=== PATIENT | female | born 1935 | race Caucasian/White ===

== ENCOUNTER 2020-05-16 15:11 | Outpatient (NON) | payer MEDICARE, SELFPAY ==
[2020-05-16 15:34] LABS: Add Urine Microscopic? YES; Appearance Urine Cloudy (Clear); Bilirubin Urine Negative (Negative); Blood Urine Negative (Negative); Color Urine Yellow (Yellow); Glucose Urine UA Negative (Negative); Ketones Urine Trace (Negative); Leukocyte Esterase Ur Negative LEU/UL (Negative); Nitrate Urine Positive (Negative); Protein Urine Negative (Negative); Specific Grav Ur 1.025 (1.010-1.020); Urobilinogen Urine 0.2 mg/dL (0.2-1.0); pH Urine 5.5 (5.0-8.0)
[2020-05-16 15:42] LABS: Bacteria Urine 4+ /hpf; RBC Urine 0-2 /hpf (0-2); Squamous Epithelial Cell Urine Few /hpf (Few)
== END 2020-05-16 15:12 ==
LOC: CHSLAB 15:13
PROVIDERS: Visit Provider Family Medicine
DX: R35.0 Frequency of micturition (principal)
CPT/HCPCS: 81001; 87077; 87086; 87088; 87186

== ENCOUNTER 2020-08-11 10:33 | Outpatient (NON) | payer MEDICARE, SELFPAY ==
[2020-08-11 10:52] LABS: Hematocrit 37.7 % (35.0-42.0); Hemoglobin 11.9 g/dL (11.7-13.8); Mean Corpuscular HGB Conc 31.6 g/dL (32.0-36.0); Mean Corpuscular Hemoglobin 30.4 pg (27.0-31.0); Mean Corpuscular Volume 96.2 fL (78.0-102.0); Mean Platelet Volume 10.3 fl (9.2-11.8); Platelet Count Result 142 K/mm3 (150-420); Red Blood Count 3.92 M/mm3 (4.20-5.40); White Blood Count 5.2 K/mm3 (4.8-10.8)
[2020-08-11 11:21] LABS: Alanine Aminotransferase 17 U/L (14-59); Albumin Level 3.5 g/dL (3.4-5.0); Alkaline Phosphatase 113 U/L (46-116); Anion Gap 10 mmol/L (8-16); Aspartate Amino Transferase 19 U/L (15-37); Bilirubin Direct 0.2 mg/dL (0-0.2); Bilirubin,Total 0.5 mg/dL (0.00-1.00); Blood Urea Nitrogen 15 mg/dL (7-18); Calcium 8.8 mg/dL (8.5-10.1); Carbon Dioxide 30 mmol/L (21-32); Chloride 100 mmol/L (98-108); Estimated Glomerular Filt Rate 60; Glucose 104 mg/dL (70-99); Osmolality Calculated 290 mOsm/kg (285-295); Sodium 140 mmol/L (136-145); Total Protein 6.5 g/dL (6.4-8.2)
== END 2020-08-11 10:34 ==
PROVIDERS: PCP Family Medicine
DX: R60.9 Edema, unspecified (principal); R93.3 Abnormal findings on diagnostic imaging of other parts of digestive tract
CPT/HCPCS: 36415; 80053; 82248; 85027

== ENCOUNTER 2020-09-30 08:37 | Outpatient (CLI) | payer MEDICARE, SELFPAY ==
[2020-09-30 23:32] LABS: SARS-CoV-2 RNA PCR Negative
== END 2020-09-30 08:38 | disposition home or self-care (01) ==
LOC: CHSLAB 08:40
PROVIDERS: PCP Family Medicine; Visit Provider Family Medicine
DX: Z01.812 Encounter for preprocedural laboratory examination (principal); Z20.822 Contact with and (suspected) exposure to COVID-19
CPT/HCPCS: C9803; U0003; U0005

== ENCOUNTER 2020-10-10 15:24 | Outpatient (CLI) | payer MEDICARE, SELFPAY ==
--- NOTE | ~2020-10-10 | XR_ITS ---
XR abdomen/kub 1V 10/10/2020 16:10 Indication: Choledocholithiasis. Recent ERCP. Procedure: KUB Comparison: No prior studies for comparison. Findings: Bowel pattern is nonobstructive. Moderate colonic fecal loading. There are 2 stents in the right mid abdomen, likely biliary stents. There are surgical clips in the left upper abdomen. There i s surgical fusion changes at L4-5. No abnormal calcifications are identified. Impression: 1: Nonobstructive bowel gas pattern. Reviewed, dictated and finalized at location A. ENGINEERING MANAGER Impression: 1: Nonobstructive bowel gas pattern.
[2020-10-10 15:43] LABS: Basophils Absolute Auto 0.04 K/mm3 (0.00-0.10); Basophils Percent Auto 0.4 % (0.0-1.0); Eosinophils Percent Auto 5.4 % (1.0-6.0); Hematocrit 39.3 % (35.0-42.0); Hemoglobin 12.7 g/dL (11.7-13.8); Immature Granulocyte Absolute 0.04 K/mm3 (0.00-0.00); Immature Granulocyte Percent A 0.4 % (0.0-0.0); Lymphocytes Absolute Auto 1.48 K/mm3 (1.10-4.50); Lymphocytes Percent Auto 15.9 % (18.0-42.0); Mean Corpuscular HGB Conc 32.3 g/dL (32.0-36.0); Mean Corpuscular Hemoglobin 30.7 pg (27.0-31.0); Mean Corpuscular Volume 94.9 fL (78.0-102.0); Monocytes Absolute Auto 0.86 K/mm3 (0.10-0.90); Monocytes Percent Auto 9.2 % (2.0-11.0); Neutrophils Absolute Auto 6.4 K/mm3 (1.7-7.2); Neutrophils Percent Auto 68.7 % (50.0-70.0); Platelet Count Result 278 K/mm3 (150-420); Red Blood Count 4.14 M/mm3 (4.20-5.40); Red Cell Distribution Width 13.6 % (11.6-14.4); White Blood Count 9.3 K/mm3 (4.8-10.8)
[2020-10-10 16:14] LABS: Alanine Aminotransferase 21 U/L (14-59); Albumin Level 3.4 g/dL (3.4-5.0); Alkaline Phosphatase 124 U/L (46-116); Anion Gap 11 mmol/L (8-16); Aspartate Amino Transferase 22 U/L (15-37); Bilirubin Direct 0.2 mg/dL (0-0.2); Bilirubin,Total 0.6 mg/dL (0.00-1.00); Blood Urea Nitrogen 11 mg/dL (7-18); Calcium 8.7 mg/dL (8.5-10.1); Carbon Dioxide 29 mmol/L (21-32); Chloride 98 mmol/L (98-108); Estimated Glomerular Filt Rate 60; Glucose 131 mg/dL (70-99); Lipase 46 U/L (73-393); Osmolality Calculated 287 mOsm/kg (285-295); Potassium 3.2 mmol/L (3.5-5.1); Sodium 138 mmol/L (136-145); Total Protein 7.1 g/dL (6.4-8.2)
== END 2020-10-10 15:25 | disposition home or self-care (01) ==
PROVIDERS: PCP Family Medicine
DX: K80.50 Calculus of bile duct without cholangitis or cholecystitis without obstruction (principal)
CPT/HCPCS: 36415; 74018; 80048; 80076; 83690; 85025

== ENCOUNTER 2021-02-24 11:05 | Outpatient (NON) | payer MEDICARE, SELFPAY ==
[2021-02-24 11:22] LABS: Basophils Absolute Auto 0.03 K/mm3 (0.00-0.10); Basophils Percent Auto 0.3 % (0.0-1.0); Eosinophils Absolute Auto 0.13 K/mm3 (0.02-0.50); Eosinophils Percent Auto 1.5 % (1.0-6.0); Hematocrit 39.8 % (35.0-42.0); Hemoglobin 12.9 g/dL (11.7-13.8); Immature Granulocyte Absolute 0.07 K/mm3 (0.00-0.00); Immature Granulocyte Percent A 0.8 % (0.0-0.0); Lymphocytes Absolute Auto 1.44 K/mm3 (1.10-4.50); Lymphocytes Percent Auto 16.4 % (18.0-42.0); Mean Corpuscular HGB Conc 32.4 g/dL (32.0-36.0); Mean Corpuscular Hemoglobin 30.4 pg (27.0-31.0); Mean Corpuscular Volume 93.6 fL (78.0-102.0); Monocytes Absolute Auto 0.61 K/mm3 (0.10-0.90); Neutrophils Absolute Auto 6.5 K/mm3 (1.7-7.2); Platelet Count Result 269 K/mm3 (150-420); Red Blood Count 4.25 M/mm3 (4.20-5.40); Red Cell Distribution Width 14.2 % (11.6-14.4); White Blood Count 8.8 K/mm3 (4.8-10.8)
== END 2021-02-24 11:06 | disposition home or self-care (01) ==
LOC: CHSLAB 11:11
DX: I25.10 Atherosclerotic heart disease of native coronary artery without angina pectoris (principal); E78.5 Hyperlipidemia, unspecified; I10 Essential (primary) hypertension; I35.0 Nonrheumatic aortic (valve) stenosis; I48.91 Unspecified atrial fibrillation
CPT/HCPCS: 36415; 85025

== ENCOUNTER 2021-03-02 14:14 | Outpatient (CLI) | payer MEDICARE, SELFPAY ==
--- NOTE | ~2021-03-02 | XR_ITS ---
XR chest 2V DATE: 03/02/2021 14:50 INDICATION: Shortness of breath TECHNIQUE: AP and lateral views COMPARISON: 05/27/2014 PA and lateral chest FINDINGS: Status post sternotomy and coronary bypass graft surgery. Cardiomegaly. Aortic calcificatio n and tortuosity. There is extensive calcification of the abdominal aorta as well, without evidence o f abdominal aortic aneurysm. Moderately large hiatal hernia. Prominent diffuse osteopenia and thoracolumbar scoliosis. No pulmonary consolidation, pleural effusion or pulmonary vascular congestion or pneumothorax is dete cted. IMPRESSION: Status post sternotomy/CABG Cardiomegaly Extensive thoracic and abdominal aortic calcification Moderately large hiatal hernia Diffuse osteopenia Reviewed, dictated and finalized at location B.
[2021-03-02 14:31] LABS: Basophils Absolute Auto 0.04 K/mm3 (0.00-0.10); Basophils Percent Auto 0.5 % (0.0-1.0); Eosinophils Percent Auto 1.3 % (1.0-6.0); Hematocrit 38.1 % (35.0-42.0); Hemoglobin 12.2 g/dL (11.7-13.8); Immature Granulocyte Absolute 0.04 K/mm3 (0.00-0.00); Immature Granulocyte Percent A 0.5 % (0.0-0.0); Lymphocytes Absolute Auto 1.23 K/mm3 (1.10-4.50); Lymphocytes Percent Auto 15.7 % (18.0-42.0); Mean Corpuscular Hemoglobin 30.9 pg (27.0-31.0); Mean Corpuscular Volume 96.5 fL (78.0-102.0); Mean Platelet Volume 8.6 fl (9.2-11.8); Monocytes Absolute Auto 0.57 K/mm3 (0.10-0.90); Monocytes Percent Auto 7.3 % (2.0-11.0); Neutrophils Absolute Auto 5.9 K/mm3 (1.7-7.2); Neutrophils Percent Auto 74.7 % (50.0-70.0); Platelet Count Result 243 K/mm3 (150-420); Red Blood Count 3.95 M/mm3 (4.20-5.40); Red Cell Distribution Width 14.4 % (11.6-14.4); White Blood Count 7.8 K/mm3 (4.8-10.8)
[2021-03-02 14:54] LABS: Alanine Aminotransferase 23 U/L (14-59); Albumin Level 3.4 g/dL (3.4-5.0); Alkaline Phosphatase 95 U/L (46-116); Anion Gap 12 mmol/L (8-16); Aspartate Amino Transferase 15 U/L (15-37); Bilirubin,Total 0.6 mg/dL (0.00-1.00); Blood Urea Nitrogen 11 mg/dL (7-18); Calcium 8.8 mg/dL (8.5-10.1); Carbon Dioxide 25 mmol/L (21-32); Chloride 103 mmol/L (98-108); Estimated Glomerular Filt Rate > 60; Glucose 127 mg/dL (70-99); NT Pro B Type Natriuretic Pept 1068 pg/mL (0-450); Osmolality Calculated 291 mOsm/kg (285-295); Sodium 140 mmol/L (136-145); Total Protein 6.6 g/dL (6.4-8.2); Troponin I < 4.0 ng/L (0.00-60.4)
== END 2021-03-02 14:15 | disposition home or self-care (01) ==
LOC: CHSLAB 14:18
PROVIDERS: PCP Family Medicine; Visit Provider Family Medicine
DX: R06.02 Shortness of breath (principal)
CPT/HCPCS: 36415; 71046; 80053; 83880; 84484; 85025

== ENCOUNTER 2021-03-19 15:44 | Outpatient (NON) | payer MEDICARE, SELFPAY ==
[2021-03-19 15:57] LABS: Basophils Absolute Auto 0.03 K/mm3 (0.00-0.10); Basophils Percent Auto 0.4 % (0.0-1.0); Eosinophils Absolute Auto 0.14 K/mm3 (0.02-0.50); Eosinophils Percent Auto 1.8 % (1.0-6.0); Hematocrit 38.2 % (35.0-42.0); Hemoglobin 12.3 g/dL (11.7-13.8); Immature Granulocyte Absolute 0.05 K/mm3 (0.00-0.00); Immature Granulocyte Percent A 0.7 % (0.0-0.0); Lymphocytes Absolute Auto 1.18 K/mm3 (1.10-4.50); Lymphocytes Percent Auto 15.4 % (18.0-42.0); Mean Corpuscular HGB Conc 32.2 g/dL (32.0-36.0); Mean Corpuscular Hemoglobin 30.6 pg (27.0-31.0); Mean Platelet Volume 9.4 fl (9.2-11.8); Monocytes Absolute Auto 0.54 K/mm3 (0.10-0.90); Neutrophils Absolute Auto 5.7 K/mm3 (1.7-7.2); Neutrophils Percent Auto 74.7 % (50.0-70.0); Platelet Count Result 283 K/mm3 (150-420); Red Blood Count 4.02 M/mm3 (4.20-5.40); Red Cell Distribution Width 14.5 % (11.6-14.4); White Blood Count 7.7 K/mm3 (4.8-10.8)
[2021-03-19 16:13] LABS: Alanine Aminotransferase 27 U/L (14-59); Albumin Level 3.5 g/dL (3.4-5.0); Alkaline Phosphatase 113 U/L (46-116); Anion Gap 14 mmol/L (8-16); Aspartate Amino Transferase 18 U/L (15-37); Bilirubin,Total 0.5 mg/dL (0.00-1.00); Blood Urea Nitrogen 11 mg/dL (7-18); Calcium 8.7 mg/dL (8.5-10.1); Carbon Dioxide 25 mmol/L (21-32); Chloride 100 mmol/L (98-108); Estimated Glomerular Filt Rate > 60; Glucose 189 mg/dL (70-99); NT Pro B Type Natriuretic Pept 1115 pg/mL (0-450); Osmolality Calculated 292 mOsm/kg (285-295); Potassium 4.2 mmol/L (3.5-5.1); Sodium 139 mmol/L (136-145); Total Protein 6.4 g/dL (6.4-8.2)
[2021-03-19 16:15] LABS: Troponin I < 4.0 ng/L (0.00-60.4)
== END 2021-03-19 15:45 | disposition home or self-care (01) ==
LOC: CHSLAB 15:46
PROVIDERS: Visit Provider Family Medicine
DX: R06.02 Shortness of breath (principal)
CPT/HCPCS: 36415; 80053; 83880; 84484; 85025

== ENCOUNTER 2021-08-24 16:23 | Outpatient (NON) | payer MEDICARE, SELFPAY ==
[2021-08-24 16:40] LABS: Basophils Absolute Auto 0.03 K/mm3 (0.00-0.10); Basophils Percent Auto 0.6 % (0.0-1.0); Eosinophils Absolute Auto 0.22 K/mm3 (0.02-0.50); Eosinophils Percent Auto 4.1 % (1.0-6.0); Hematocrit 38.4 % (35.0-42.0); Hemoglobin 12.4 g/dL (11.7-13.8); Immature Granulocyte Absolute 0.04 K/mm3 (0.00-0.00); Immature Granulocyte Percent A 0.7 % (0.0-0.0); Lymphocytes Absolute Auto 1.56 K/mm3 (1.10-4.50); Lymphocytes Percent Auto 28.7 % (18.0-42.0); Mean Corpuscular HGB Conc 32.3 g/dL (32.0-36.0); Mean Corpuscular Hemoglobin 30.4 pg (27.0-31.0); Mean Corpuscular Volume 94.1 fL (78.0-102.0); Mean Platelet Volume 9.7 fl (9.2-11.8); Monocytes Absolute Auto 0.62 K/mm3 (0.10-0.90); Monocytes Percent Auto 11.4 % (2.0-11.0); Neutrophils Percent Auto 54.5 % (50.0-70.0); Platelet Count Result 266 K/mm3 (150-420); Red Blood Count 4.08 M/mm3 (4.20-5.40); Red Cell Distribution Width 15.9 % (11.6-14.4); White Blood Count 5.4 K/mm3 (4.8-10.8)
[2021-08-24 17:03] LABS: Alanine Aminotransferase 21 U/L (14-59); Albumin Level 3.6 g/dL (3.4-5.0); Alkaline Phosphatase 100 U/L (46-116); Anion Gap 12 mmol/L (8-16); Aspartate Amino Transferase 23 U/L (15-37); Bilirubin,Total 0.5 mg/dL (0.00-1.00); Blood Urea Nitrogen 13 mg/dL (7-18); Calcium 9.2 mg/dL (8.5-10.1); Carbon Dioxide 25 mmol/L (21-32); Chloride 101 mmol/L (98-108); Estimated Glomerular Filt Rate > 60; Glucose 121 mg/dL (70-99); NT Pro B Type Natriuretic Pept 1226 pg/mL (0-450); Osmolality Calculated 287 mOsm/kg (285-295); Potassium 4.2 mmol/L (3.5-5.1); Sodium 138 mmol/L (136-145); Total Protein 6.6 g/dL (6.4-8.2)
== END 2021-08-24 16:24 | disposition home or self-care (01) ==
LOC: CHSLAB 16:24
PROVIDERS: Visit Provider Family Medicine
DX: I89.0 Lymphedema, not elsewhere classified (principal); R06.02 Shortness of breath
CPT/HCPCS: 36415; 80053; 83880; 85025

== ENCOUNTER 2021-10-14 19:40 | Emergency (ER) | payer MEDICARE, SELFPAY ==
--- NOTE | ~2021-10-14 | XR_ITS ---
XR chest 1V DATE: 10/14/2021 20:20 INDICATION: Shortness of breath, left-sided weakness, numbness. TECHNIQUE: AP chest COMPARISON: 03/02/2021 AP and lateral chest FINDINGS: Status post sternotomy and coronary bypass graft surgery. Cardiomegaly. Aortic calcification. Mild atelectasis and/or scarring in the lower lungs; otherwise no pulmonary infiltrate or consolidati on, pleural effusion, pulmonary vascular congestion or pneumothorax. Prominent osteoarthritic change at the left glenohumeral joint. Diffuse osteopenia. Dextroscoliosis o f the thoracic spine. IMPRESSION: Status post CABG Cardiac megaly Aortic atherosclerosis Mild discoid atelectasis or scarring, lower lungs; otherwise no active pulmonary disease Reviewed, dictated and finalized at location A. IMPRESSION: Status post CABG Cardiac megaly Aortic atherosclerosis Mild discoid atelectasis or scarring, lower lungs; otherwise no active pulmonar y disease
--- NOTE | ~2021-10-14 | CT_ITS ---
EXAMINATION: CT brain wo con DATE: 10/14/2021 20:13 INDICATION: Left sided paresis. History of left cerebral vascular accident with left-sided deficits TECHNIQUE: Computed tomography (CT) of the head was performed without intravenous contrast. The mA wa s adjusted according to patient size. Iterative reconstruction technique was employed. Exam dose: 60 5.33 mGy-cm total exam DLP. COMPARISON: None FINDINGS: There is cerebral and cerebellar atrophy. Common and bilateral carotid siphon internal carotid artery calcifications as well as vertebral and b asilar artery calcifications are noted. Is nonspecific diminished attenuation of the cerebral white m atter, likely due to chronic small vessel ischemic changes. Chronic bilateral basal ganglia lacunar infarcts, right greater than left. No recent cerebrovascular accident is evident. CT is not sensitive for detection of hyperacute nonhem orrhagic infarcts. MR with diffusion imaging would be more appropriate for such scenario. No intracranial mass lesion, hemorrhage, midline shift or mass effect effect. No subdural or epidural hematoma. The orbital contents are unremarkable. There is complete opacification of the right maxillary sinus. There is mild focal posterior medial ri ght ethmoid air cell soft tissue thickening. The paranasal sinuses are otherwise unremarkable. Normal development and aeration of the mastoid air cells. No skull fracture or bone destruction. IMPRESSION: Cerebral atherosclerosis and chronic small vessel ischemic changes of cerebral white mat ter Chronic bilateral basal ganglia lacunar infarcts, more prominent on the right No acute intracranial finding Cerebral and cerebellar atrophy Reviewed, dictated and finalized at Location A. Reviewed, dictated and finalized at location A. IMPRESSION: Cerebral atherosclerosis and chronic small vessel ischemic changes of cerebral white matter Chronic bilateral basal ganglia lacunar infarcts, more prominent on the right No acute intracranial finding Cerebral and cerebellar atrophy
[2021-10-14 19:51] VITALS: BP 108/70; PULSE 92; RESP 18; TEMP 37; O2SAT 96
--- NOTE | 2021-10-14 19:57 | ECG_ITS ---
Measurements Intervals [place] Rate: 82 P: [place]: 0 QRS: -55 QRSD: 145 T: -12 QT: 372 QTc: 435 Interpretive Statements ATRIAL FIBRILLATION INDETERMINATE AXIS RIGHT BUNDLE BRANCH BLOCK [120+ ms QRS DURATION, UPRIGHT V1, 40+ ms S IN I/aVL/V4/V5/V6] LEFT ANTERIOR FASCICULAR BLOCK [QRS AXIS <= -45, QR IN I, RS IN II] NO PREVIOUS ECG AVAILABLE FOR COMPARISON Electronically Signed On 10-15-2021 13:55:26 CDT by eXnia Garcia M.D.
[2021-10-14 20:56] LABS: Basophils Percent Auto 0.4 % (0.2-1.2); Eosinophils Absolute Auto 0.2 K/mm3 (0-0.3); Eosinophils Percent Auto 1.6 % (0-4.4); Hematocrit 39.5 % (37.0-47.0); Hemoglobin 13.1 g/dL (12.0-15.0); Immature Granulocyte Absolute 0.04 K/mm3 (0.00-0.031); Immature Granulocyte Percent A 0.4 % (0-0.5); Lymphocytes Absolute Auto 1.72 K/mm3 (0.9-3.2); Lymphocytes Percent Auto 16.5 % (18.3-44.2); Mean Corpuscular HGB Conc 33.2 g/dl (32-36); Mean Corpuscular Hemoglobin 30.6 pg (26-34); Mean Corpuscular Volume 92.3 fl (80-100); Mean Platelet Volume 8.8 fl (7.4-10.4); Monocytes Absolute Auto 0.9 K/mm3 (0.1-0.6); Monocytes Percent Auto 8.5 % (2.6-8.5); Neutrophils Absolute Auto 7.6 K/mm3 (1.3-6.7); Neutrophils Percent Auto 72.6 % (45.5-73.1); Platelet Count Result 274 k/mm3 (150-375); Red Blood Count 4.28 M/mm3 (4.2-5.4); Red Cell Distribution Width 16.4 % (11.5-14.5); White Blood Count 10.4 K/mm3 (4.5-10.0)
[2021-10-14 21:04] LABS: INR 1.4
[2021-10-14 21:05] LABS: Partial Thromboplastin Time 39.8 SECONDS (22.3-36.8)
[2021-10-14 21:07] LABS: Alanine Aminotransferase 31 U/L (4-35); Albumin Level 4.2 g/dL (3.5-5.1); Alkaline Phosphatase 98 U/L (38-126); Anion Gap 7 mmol/L (8-16); Aspartate Amino Transferase 34 U/L (14-36); Bilirubin,Total 0.5 mg/dL (0.2-1.3); Blood Urea Nitrogen 24 mg/dL (7-17); Carbon Dioxide 30 mmol/L (22-30); Chloride 97 mmol/L (98-107); Estimated CRCL calculation 37 ml/min; Estimated Glomerular Filt Rate > 60; Glucose 112 mg/dL (65-110); Potassium 3.4 mmol/L (3.4-5.0); Sodium 134 mmol/L (137-145)
[2021-10-14 21:22] LABS: Troponin I < 0.012 ng/mL (0.000-0.034)
[2021-10-14 22:16] VITALS: BP 124/74; PULSE 90; PULSE 94; RESP 20
[2021-10-14 22:17] VITALS: PULSE 88; RESP 17
[2021-10-14 22:30] VITALS: PULSE 85; RESP 16
[2021-10-14 22:31] VITALS: BP 120/77; PULSE 81; RESP 19
[2021-10-14 22:45] VITALS: PULSE 105; RESP 19
[2021-10-14 23:23] LABS: Add Urine Microscopic? NO; Appearance Urine Clear (Clear); Bilirubin Urine Negative (Negative); Blood Urine Negative (Negative); Color Urine Yellow (Yellow); Glucose Urine UA Negative (Negative); Ketones Urine Negative (Negative); Leukocyte Esterase Ur Negative LEU/UL (Negative); Nitrate Urine Negative (Negative); Protein Urine Negative (Negative); Specific Grav Ur 1.011 (1.001-1.035); Urobilinogen Urine Negative mg/dL (<2.0)
--- NOTE | 2021-10-14 23:41 | PC.NURSE ---
Call from Jazzy VLILARREAL at [facility] checking on the status of the pt. no known plan at this time, but will call back @ [phone] when dipo plan has been made by ERP
--- NOTE | 2021-10-14 23:46 | ED.NEUROSD ---
HPI - Neuro Symptoms/Deficit General Chief Complaint: Neuro Symptoms/Deficit Stated Complaint: left sided weakness x 1 week, hx of CVA Time Seen by Provider: 10/14/21 22:09 Source: patient History of Present Illness HPI Narrative: Patient presents with a dizzy spell and left-sided weakness for 1 week. Sweats she has had prior strokes and is chronically weak on her left side and has some chronic left-sided weakness. Approximately 1 week ago she had an episode of feeling off balance she also has a history of vertigo that episode was more intense. Since then she reports a fog in her head and her numbness feels different on the left side so she wanted to be evaluated. Denies any abdominal pain, nausea, vomiting, diarrhea, fevers, cough, congestion Review of Systems Review of Systems: CONSTITUTIONAL: Denies fever, chills, or sweats. EYES: Denies visual changes, redness, or discharge. ENT: Denies rhinorrhea, congestion, sore throat, or otalgia. CARDIOVASCULAR: Denies chest pain, palpitations, or edema. RESPIRATORY: Denies cough or dyspnea. GASTROINTESTINAL: Denies abdominal pain, nausea, vomiting, or diarrhea. GENITOURINARY: Denies dysuria or hematuria. SKIN: Denies rash or itching. MUSCULOSKELETAL: Denies back pain, joint pain, or myalgia. NEUROLOGIC: Reports numbness weakness and dizziness PSYCHIATRIC: Denies anxiety or depression. All systems reviewed & are unremarkable except as noted in HPI and below Exam Narrative: GENERAL: Well-appearing, well-nourished, and in no acute distress. HEAD: Normocephalic, atraumatic. EYES: PERRLA and EOMI. ENT: Nares clear, no rhinorrhea or epistaxis. Mucous membranes moist. NECK: Supple. No masses. No JVD CHEST: Clear to auscultation. No respiratory distress. No wheezes rales or rhonchi HEART: Regular rate and rhythm. No murmur heard. Normal peripheral pulses. ABDOMEN: Soft, nontender, nondistended, normal active bowel sounds. EXTREMITIES: Normal range of motion. No edema. SKIN: Warm, dry, no rash. NEURO: Cranial nerves II through XII are intact there is 4-5 strength of the left upper extremity extremity with elbow flexion extension patient reports due to pain. Out of 5 strength in the remainder of the extremities sensation intact to light touch in all extremities. Finger-nose is intact without dysmetria no dysdiadochokinesia alert and oriented x3. PSYCH: Normal mood and affect. Course Reevaluation(s) Reevaluation #1: Results thus far reviewed with patient and family. Symptoms may represent exacerbation of chronic vertigo or may represent new acute ischemia however given the duration of symptoms patient is not a candidate for acute intervention. She was offered admission and further evaluation with an MRI of her she is already on maximal medical therapies patient and family were comfortable without additional imaging she feels like she can continue to manage her symptoms at home and would like to follow-up with her primary care physician. Date: 10/14/21 Time: 23:54 Vital Signs Vital signs: Vital Signs Temperature 37.0 C 10/14/21 19:51 Pulse Rate 92 10/14/21 19:51 Respiratory Rate 18 10/14/21 19:51 Blood Pressure 108/70 10/14/21 19:51 Pulse Oximetry 96 10/14/21 19:51 Temperature 37.0 C 10/14/21 19:51 Pulse Rate 105 H 10/14/21 22:45 Respiratory Rate 19 10/14/21 22:45 Blood Pressure 120/77 10/14/21 22:31 Pulse Oximetry 96 10/14/21 19:51 MDM - Neuro Symptoms/Deficit MDM Narrative Medical decision making narrative: H&P as above, vss, pt looks clinically well, exam with mild left upper extremity weakness likely related to pain patient reported that is chronic., labs unremarkable, img unremarkable for acute process, additional labs/img considered, symptomatic relief available as needed, on reevaluation pt continues to looks clinically well. Symptoms may represent 1 week old CVA versus exacerbation of chronic numbness weakness and vertigo, dns intracranial hemorrhage,
== END 2021-10-15 00:45 ==
PROVIDERS: Emergency Provider Emergency Medicine; PCP Family Medicine
DX: R42 Dizziness and giddiness (principal); I48.91 Unspecified atrial fibrillation; I69.954 Hemiplegia and hemiparesis following unspecified cerebrovascular disease affecting left non-dominant side
CPT/HCPCS: 36415; 70450; 71045; 80053; 81003; 84484; 85025; 85610; 85730; 93005; 99284

== ENCOUNTER 2021-11-30 16:00 | Inpatient (IN) | payer MEDICARE, SELFPAY ==
[2021-11-30] VITALS (14 sets, daily range): BP systolic 109–134; BP diastolic 63–86; PULSE 94–101; RESP 16–27; TEMP 37.3–38.5; O2SAT 91–100; BMI 24.3
--- NOTE | ~2021-11-30 | XR_ITS ---
EXAMINATION: XR chest PICC line INDICATION: PICC insertion TECHNIQUE: Portable AP chest at 1049 hours COMPARISON: 11/30/2021 FINDINGS: A right upper extremity PICC has been inserted which courses superiorly into the internal j ugular vein. There is mild atelectasis of the lung bases. Right basilar airspace opacities have impro brian. There is no pleural effusion or pneumothorax. The cardiomediastinal silhouette is stable. IMPRESSION: 1. Right upper extremity PICC coursing superiorly into the internal jugular vein. 2. Bibasilar atelectasis. Reviewed, dictated and finalized at location B. IMPRESSION: 1. Right upper extremity PICC coursing superiorly into the internal jugular vei n. 2. Bibasilar atelectasis.
--- NOTE | ~2021-11-30 | CT_ITS ---
EXAMINATION: CT brain wo con DATE: 11/30/2021 18:12 INDICATION: fall TECHNIQUE: Computed tomography (CT) of the head was performed without intravenous contrast. The mA wa s adjusted according to patient size. Iterative reconstruction technique was employed. The dose-lengt h product was 605.33 mGy-cm. COMPARISON: 10/14/21 FINDINGS: No acute intracranial hemorrhage or extra-axial fluid collection. No hydrocephalus, mass, or herniation. No acute ischemic infarct. Unremarkable dural venous sinus attenuation. No acute osseous abnormality. Mucosal thickening in the ethmoid air cells. Hyperdense material in the right maxillary sinus. Air-fl uid level in left maxillary sinus. Otherwise the aerated spaces are clear. Moderate atrophy. Mild chronic white matter change. Chronic lacunar infarcts. Atherosclerotic intracr anial calcifications. Bilateral lens replacements. IMPRESSION: No acute intracranial process. Other findings may indicate presence of acute on chronic sinusitis in the appropriate clinical context. Reviewed, dictated and finalized at location K.
--- NOTE | ~2021-11-30 | XR_ITS ---
EXAMINATION: XR chest PICC line INDICATION: PICC adjustment TECHNIQUE: Portable AP chest at 1312 hours COMPARISON: 1049 hours FINDINGS: The right upper extremity PICC now ends with its tip in the distal superior vena cava. Card iomegaly is noted. There is no pleural effusion or pneumothorax. There is mild atelectasis of the tanvir g bases. Median sternotomy wires and mediastinal surgical clips are seen, likely from prior coronary artery bypass grafting. IMPRESSION: 1. Right upper extremity PICC now ending with its tip at the distal superior vena cava. Reviewed, dictated and finalized at location B. IMPRESSION: 1. Right upper extremity PICC now ending with its tip at the distal superior ve na cava.
--- NOTE | ~2021-11-30 | XR_ITS ---
EXAMINATION: XR chest 1V portable INDICATION: Fever and weakness TECHNIQUE: Portable AP chest at 1713 hours COMPARISON: 10/14/2021 FINDINGS: Airspace opacities have developed in the right lung base. Left basilar airspace opacities a re stable. There is no definite pleural effusion or pneumothorax. Cardiomegaly is noted. Median gordon otomy wires and mediastinal surgical clips are seen, likely from prior coronary artery bypass graftin g. There is advanced osteoarthritis of the left glenohumeral joint. IMPRESSION: 1. New right basilar airspace opacity, consistent with atelectasis versus pneumonia. 2. Cardiomegaly. Reviewed, dictated and finalized at location A. IMPRESSION: 1. New right basilar airspace opacity, consistent with atelectasis versus pneum onia. 2. Cardiomegaly.
--- NOTE | ~2021-11-30 | XR_ITS ---
EXAM: XR hip BI 2V w AP pelvis, XR knee LT min 4V, XR femur LT min 2V HISTORY: FALL YESTERDAY, WEAKNESS X2DAY, PAIN MAINLY IN LT HIP COMPARISON: Abdomen x-ray 10/10/2020. FINDINGS: Osteopenia. Lumbar fusion. Degenerative changes in the bilateral hips and pubic symphysis. Right inguinal/femoral surgical clips. Severe tricompartmental degenerative change in the left knee. Large volume left knee joint effusion. No fracture or dislocation. IMPRESSION: No acute osseous finding in the pelvis, bilateral hips, left femur, or left knee. Reviewed, dictated and finalized at location K. IMPRESSION: No acute osseous finding in the pelvis, bilateral hips, left femur, or left kne e. IMPRESSION: No acute osseous finding in the pelvis, bilateral hips, left femur, or left kne e.
--- NOTE | 2021-11-30 16:54 | ECG_ITS ---
Measurements Intervals [place] Rate: 102 P: [place]: 0 QRS: 7 QRSD: 144 T: -7 QT: 338 QTc: 441 Interpretive Statements ATRIAL FIBRILLATION WITH RAPID VENTRICULAR RESPONSE RIGHT BUNDLE BRANCH BLOCK CANNOT RULE OUT SEPTAL INFARCT, AGE INDETERMINATE MINIMAL Q WAVES- INFERIOR LEADS BASELINE WANDER- V3-V5 ABNORMAL ECG Electronically Signed On 12-01-2021 12:49:24 CDT by Jonny Bingham D.O.
[2021-11-30 17:07] LABS: Basophils Percent Auto 0.2 % (0.2-1.2); Eosinophils Percent Auto 0.3 % (0-4.4); Hemoglobin 13.3 g/dL (12.0-15.0); Immature Granulocyte Absolute 0.05 K/mm3 (0.00-0.031); Immature Granulocyte Percent A 0.4 % (0-0.5); Lymphocytes Absolute Auto 1.02 K/mm3 (0.9-3.2); Lymphocytes Percent Auto 7.5 % (18.3-44.2); Mean Corpuscular HGB Conc 34.1 g/dl (32-36); Mean Corpuscular Volume 87.8 fl (80-100); Mean Platelet Volume 10.2 fl (7.4-10.4); Monocytes Absolute Auto 1.3 K/mm3 (0.1-0.6); Monocytes Percent Auto 9.2 % (2.6-8.5); Neutrophils Absolute Auto 11.3 K/mm3 (1.3-6.7); Neutrophils Percent Auto 82.4 % (45.5-73.1); Platelet Count Result 388 k/mm3 (150-375); Red Blood Count 4.44 M/mm3 (4.2-5.4); Red Cell Distribution Width 13.7 % (11.5-14.5); White Blood Count 13.6 K/mm3 (4.5-10.0)
[2021-11-30 17:16] LABS: Lactic Acid Reflex 2.5 mmol/L (0.7-2.0)
[2021-11-30 18:02] LABS: Appearance Urine Clear (Clear); Bilirubin Urine Negative (Negative); Color Urine Yellow (Yellow); Glucose Urine UA Negative (Negative); Ketones Urine Negative (Negative); Leukocyte Esterase Ur Trace LEU/UL (Negative); Nitrate Urine Positive (Negative); Protein Urine Negative (Negative); Specific Grav Ur 1.015 (1.001-1.035); Urobilinogen Urine 0.2 mg/dL (<2.0)
[2021-11-30 18:06] LABS: Bacteria Urine Trace /hpf; Mucus Urine Rare /lpf; RBC Urine 0-2 /hpf (0-2); Squamous Epithelial Cell Urine Rare /hpf (Few)
[2021-11-30 18:11] LABS: Alanine Aminotransferase 17 U/L (4-35); Alkaline Phosphatase 117 U/L (38-126); Anion Gap 9 mmol/L (8-16); Aspartate Amino Transferase 33 U/L (14-36); Blood Urea Nitrogen 14 mg/dL (7-17); Calcium 8.3 mg/dL (8.4-10.2); Carbon Dioxide 30 mmol/L (22-30); Chloride 94 mmol/L (98-107); Estimated CRCL calculation 66 ml/min; Estimated Glomerular Filt Rate > 60; Glucose 158 mg/dL (65-110); Potassium 3.1 mmol/L (3.4-5.0); Sodium 133 mmol/L (137-145)
[2021-11-30 18:16] LABS: Add Urine Microscopic? YES; Blood Urine Trace (Negative)
--- NOTE | 2021-11-30 18:55 | PC.NURSE ---
Blood cultures being drawn at this time
--- NOTE | 2021-11-30 19:28 | PC.NURSE ---
Report received and care of pt assumed at this time. Pt resting on stretcher.
[2021-11-30 20:05] LABS: Reflex Lactic Acid Yes or No Add Lactic
[2021-11-30] MEDS: CALCIUM CARBONATE (TUMS) 500 MG (200 MG ELEMENTAL) PO (20:30)
[2021-11-30 20:36] LABS: Lactic Acid 1.2 mmol/L (0.7-2.0)
[2021-11-30] MEDS: METOCLOPRAMIDE HCL INJ 10 MG/2 ML VIAL IV PUSH (20:59)
[2021-11-30] MEDS: POTASSIUM CHLORIDE 10 MEQ TABLET 20 MEQ PO (20:59)
--- NOTE | 2021-11-30 22:55 | ADMGEN ---
This patient, Edwina Elaine, was admitted to Medical Room 340-01. Patient/family oriented to hospital policies and general routines including ID bracelet, bed and alarms, visiting hours, pain management, procedures, bathroom and other care routines, personal items, smoking policy, room service/diet, and visiting hours. Information on how to activate the Rapid Response Team has been discussed. Patient/Family are encouraged to report perceived risks to care and to ask questions if they do not understand what they are told or what they should do.
[2021-12-01] VITALS (8 sets, daily range): BP systolic 110–120; BP diastolic 56–68; PULSE 86–101; RESP 16–30; TEMP 36.1–37; O2SAT 93–96
--- NOTE | 2021-12-01 00:31 | ED.WEAKNESS ---
HPI - Weakness General Chief complaint: Weakness Stated complaint: Weakness, Fever Time Seen by Provider: 11/30/21 17:13 Source: patient Mode of arrival: EMS History of Present Illness HPI Narrative: 86-year-old female presents today from long-term with complaints of weakness and dizziness that she noted yesterday. Patient states her legs gave out on her yesterday and she fell. Patient states she has not been up since she fell. Patient with complaints of left knee pain. Patient with productive cough. Patient states she just got off isolation for COVID. Was diagnosed November 17. Patient denies fever, body aches, chills. Related Data Home Medications Medication Instructions Recorded Confirmed Antacid (calcium carbonate) 500 mg PO PRN PRN 11/30/21 11/30/21 Singulair 10 mg PO DAILY 11/30/21 11/30/21 amlodipine 5 mg PO DAILY 11/30/21 11/30/21 apixaban [Eliquis] 5 mg PO BID 11/30/21 11/30/21 atorvastatin 40 mg PO DAILY 11/30/21 11/30/21 cetirizine 10 mg PO DAILY 11/30/21 11/30/21 fluticasone propion-salmeterol 1 inh INHALATION BID 11/30/21 11/30/21 [Advair Diskus] fluticasone propionate 1 spray EACH NARE DAILY 11/30/21 11/30/21 furosemide 80 mg PO BID 11/30/21 11/30/21 lisinopril 5 mg PO DAILY 11/30/21 11/30/21 loperamide 2 mg PO PRN PRN MDD 14 mg 11/30/21 11/30/21 meclizine 25 mg PO QID 11/30/21 11/30/21 metoprolol tartrate 50 mg PO BID 11/30/21 11/30/21 pantoprazole 40 mg PO DAILY 11/30/21 11/30/21 senna-docusate sodium 8.6 - 50 mg PO DAILY PRN 11/30/21 11/30/21 sertraline 50 mg PO DAILY 11/30/21 11/30/21 Allergies Allergy/AdvReac Type Severity Reaction Status Date / Time clonidine Allergy Mild Unknown Verified 11/30/21 23:32 codeine Allergy Unknown Verified 11/30/21 23:32 diphenhydramine Allergy Unknown Verified 11/30/21 23:32 Iodinated Contrast Media Allergy Unknown Verified 11/30/21 23:32 morphine Allergy Unknown Verified 11/30/21 23:32 oxycodone Allergy Unknown Verified 11/30/21 23:32 tramadol Allergy Unknown Verified 11/30/21 23:32 Review of Systems Review of Systems: CONSTITUTIONAL: Weakness. Denies fever, chills, or sweats. EYES: Denies visual changes, redness, or discharge. ENT: Denies rhinorrhea, congestion, sore throat, or otalgia. CARDIOVASCULAR: Denies chest pain, palpitations, or edema. RESPIRATORY: Denies cough or dyspnea. GASTROINTESTINAL: Denies abdominal pain, nausea, vomiting, or diarrhea. GENITOURINARY: Denies dysuria or hematuria. SKIN: Denies rash or itching. MUSCULOSKELETAL: Left knee pain after fall. Denies back pain, joint pain, or myalgia. NEUROLOGIC: Weakness. Denies headache, numbness, dizziness. PSYCHIATRIC: Denies anxiety or depression. [facility] Social History Social History Smoking status: Never smoker Second hand tobacco smoke exposure: No Alcohol intake: never Substance use: never Spiritual care concerns: No (Mormonism) Exam Narrative: GENERAL: Ill-appearing, well-nourished, and in no acute distress. HEAD: Normocephalic, atraumatic. EYES: PERRLA and EOMI. ENT: Nares clear, no rhinorrhea or epistaxis. Mucous membranes moist. Oropharynx without tonsillar hypertrophy exudate or other lesions. Bilateral TMs pearly salmeron nonbulging NECK: Supple. No adenopathy or masses. No carotid bruits or JVD CHEST: Diminished to auscultation. No respiratory distress. No wheezes rales or rhonchi HEART: Regular rate and rhythm. No murmur heard. Normal peripheral pulses. ABDOMEN: Soft, nontender, nondistended, normal active bowel sounds. EXTREMITIES: Limited range of motion to left knee due to pain. Swelling noted to left knee. SKIN: Warm, dry, no rash. NEURO: No focal deficits. Alert and oriented x3. PSYCH: Normal mood and affect. Course Course Emergency Course: Labs and x-ray as noted. Hospitalist notified and case reviewed. Patient to be admitted for pneumonia and further management on inpatient. Vital Signs Vital signs
--- NOTE | 2021-12-01 02:48 | ECG_ITS ---
Measurements Intervals [place] Rate: 100 P: [place]: 0 QRS: 21 QRSD: 138 T: -8 QT: 367 QTc: 474 Interpretive Statements ATRIAL FIBRILLATION WITH RAPID VENTRICULAR RESPONSE RIGHT BUNDLE BRANCH BLOCK BASELINE ARTIFACT- V2, V4 ABNORMAL ECG Electronically Signed On 12-01-2021 10:06:42 CDT by Jonny Bingham D.O.
[2021-12-01] MEDS: ONDANSETRON INJ 4 MG/2 ML VIAL IV PUSH (03:23)
[2021-12-01] MEDS: KCL 40 MEQ/0.9% SOD CHL 1,000 ML 100 ML IV CONT (03:28)
--- NOTE | 2021-12-01 03:40 | PM.IMHP ---
H&P: HPI History of Present Illness Date/Time: 12/01/21 03:40 Chief Complaint: SOB, Malaise, cough Narrative: 86 yo F PMHx of depression, COPD/asthma, HTN. Previous COVID PNA 10/2021. Presents with malaise since Tuesday. Patient states she was feeling dizzy and weak, and Tuesday evening she was so weak to the point that her legs gave out and she fell. She states for the past week she has had a productive cough. She reports she coughed so hard in the ED that she had a vomiting episode. Patient had another vomiting episode with her coughing spell when I evaluated her. She denies fevers/chills, no worsening SOB than baseline, diarrhea, constipation, dysuria, hematuria, blood in stool. In ED, patient's labs remarkable for WBC 13.6, plt 388, sodium 133 and chloride 94, potassium 3.1. Initial lactic 2.5, however on repeat normal. CXR shows RLL consolidation. UA positive for nitrates and leuks. Blood culture and urine culture done. Patient given dose of vanc and cefepime. Review of Systems Review of Systems: All systems reviewed & are unremarkable except as noted in HPI and below PMFSH Social History Social History Smoking status: Never smoker Second hand tobacco smoke exposure: No Alcohol intake: never Substance use: never Spiritual care concerns: No (Hoahaoism) Meds Home Medications and Allergies Home Medications Medication Instructions Recorded Confirmed Type Antacid (calcium carbonate) 500 mg PO PRN PRN 11/30/21 11/30/21 History Singulair 10 mg PO DAILY 11/30/21 11/30/21 History amlodipine 5 mg PO DAILY 11/30/21 11/30/21 History apixaban [Eliquis] 5 mg PO BID 11/30/21 11/30/21 History atorvastatin 40 mg PO DAILY 11/30/21 11/30/21 History cetirizine 10 mg PO DAILY 11/30/21 11/30/21 History fluticasone propion-salmeterol 1 inh INHALATION BID 11/30/21 11/30/21 History [Advair Diskus] fluticasone propionate 1 spray EACH NARE DAILY 11/30/21 11/30/21 History furosemide 80 mg PO BID 11/30/21 11/30/21 History lisinopril 5 mg PO DAILY 11/30/21 11/30/21 History loperamide 2 mg PO PRN PRN MDD 14 mg 11/30/21 11/30/21 History meclizine 25 mg PO QID 11/30/21 11/30/21 History metoprolol tartrate 50 mg PO BID 11/30/21 11/30/21 History pantoprazole 40 mg PO DAILY 11/30/21 11/30/21 History senna-docusate sodium 8.6 - 50 mg PO DAILY PRN 11/30/21 11/30/21 History sertraline 50 mg PO DAILY 11/30/21 11/30/21 History Allergies Allergy/AdvReac Type Severity Reaction Status Date / Time clonidine Allergy Mild Unknown Verified 11/30/21 23:32 codeine Allergy Unknown Verified 11/30/21 23:32 diphenhydramine Allergy Unknown Verified 11/30/21 23:32 Iodinated Contrast Media Allergy Unknown Verified 11/30/21 23:32 morphine Allergy Unknown Verified 11/30/21 23:32 oxycodone Allergy Unknown Verified 11/30/21 23:32 tramadol Allergy Unknown Verified 11/30/21 23:32 Vital Signs Vital Signs - 24 hr 11/30/21 16:24 11/30/21 16:56 11/30/21 16:58 Temperature 101.3 F H Pulse Rate 97 100 101 H Respiratory Rate 16 27 H Blood Pressure 134/77 120/77 Pulse Oximetry 97 96 11/30/21 17:01 11/30/21 17:16 11/30/21 17:31 Temperature Pulse Rate 98 99 94 Respiratory Rate 25 H 25 H 27 H Blood Pressure 125/76 114/78 109/63 Pulse Oximetry 97 98 96 11/30/21 17:33 11/30/21 18:31 11/30/21 19:05 Temperature Pulse Rate 95 101 H 99 Respiratory Rate 18 25 H 20 Blood Pressure 109/63 125/70 132/72 Pulse Oximetry 100 94 91 11/30/21 19:08 11/30/21 20:21 11/30/21 22:47 Temperature Pulse Rate 96 96 Respiratory Rate 16 16 Blood Pressure 126/68 126/86 Pulse Oximetry 98 94 94 11/30/21 23:00 11/30/21 23:23 Temperature 99.1 F Pulse Rate Respiratory Rate Blood Pressure Pulse Oximetry 94 Exam Const: General: no acute distress and uncomfortable (coughing) HENMT: Mouth: Yes moist mucous membranes Eyes: General: appearance normal, both eyes and al
[2021-12-01] MEDS: FLUTICASONE/SALMETEROL 115-21 MCG INHALER 1 PUFF 2 PUFF INHALATION ×2 (08:01→20:20)
[2021-12-01 08:23] LABS: Basophils Percent Auto 0.2 % (0.2-1.2); Hematocrit 35.6 % (37.0-47.0); Immature Granulocyte Absolute 0.05 K/mm3 (0.00-0.031); Immature Granulocyte Percent A 0.4 % (0-0.5); Lymphocytes Absolute Auto 1.07 K/mm3 (0.9-3.2); Lymphocytes Percent Auto 8.5 % (18.3-44.2); Mean Corpuscular HGB Conc 30.9 g/dl (32-36); Mean Corpuscular Volume 93.9 fl (80-100); Mean Platelet Volume 10.7 fl (7.4-10.4); Monocytes Absolute Auto 1.5 K/mm3 (0.1-0.6); Monocytes Percent Auto 11.8 % (2.6-8.5); Neutrophils Absolute Auto 9.9 K/mm3 (1.3-6.7); Neutrophils Percent Auto 79.1 % (45.5-73.1); Platelet Count Result 192 k/mm3 (150-375); Red Blood Count 3.79 M/mm3 (4.2-5.4); Red Cell Distribution Width 14.2 % (11.5-14.5); White Blood Count 12.6 K/mm3 (4.5-10.0)
[2021-12-01 08:40] LABS: Hemoglobin A1C 6.4 % (<5.7)
[2021-12-01 08:43] LABS: Anion Gap 9 mmol/L (8-16); Blood Urea Nitrogen 11 mg/dL (7-17); Carbon Dioxide 26 mmol/L (22-30); Chloride 97 mmol/L (98-107); Estimated CRCL calculation 80 ml/min; Estimated Glomerular Filt Rate > 60; Glucose 143 mg/dL (65-110); Potassium 3.5 mmol/L (3.4-5.0); Sodium 132 mmol/L (137-145)
[2021-12-01] MEDS: APIXABAN 5 MG TABLET PO ×2 (09:28→20:12)
[2021-12-01] MEDS: amLODIPine BESYLATE 5 MG TABLET PO (09:28)
[2021-12-01] MEDS: lisinopriL 5 MG TABLET PO (09:28)
[2021-12-01] MEDS: MONTELUKAST SODIUM 10 MG TABLET PO (09:28)
[2021-12-01] MEDS: PANTOPRAZOLE 40 MG TABLET PO (09:28)
[2021-12-01] MEDS: SERTRALINE HCL 50 MG TABLET PO (09:28)
[2021-12-01] MEDS: LORATADINE 10 MG TABLET PO (09:28)
[2021-12-01] MEDS: METOPROLOL TARTRATE 50 MG TAB PO ×2 (09:28→20:12)
[2021-12-01] MEDS: ATORVASTATIN 40 MG TABLET PO (09:28)
[2021-12-01] MEDS: FLUTICASONE PROPIONATE 0.05% NA SPR 16 GM BTL (*BKC) 1 SPRAY NASAL ×2 (09:29→20:13)
--- NOTE | 2021-12-01 12:20 | PM.IMPN ---
Progress Note: A&P Assessment and Plan (1) Pneumonia: Qualifiers: Laterality: right Lung location: lower lobe of lung Pneumonia type: due to unspecified organism Qualified Code(s): J18.9 - Pneumonia, unspecified organism Code(s): J18.9 - Pneumonia, unspecified organism Status: Acute Assessment and Plan: CXR shows right lower lobe consolidation and cardiomegaly. Patient recently treated for covid pneumonia. Do not suspect COPD exacerbation, will hold off on steroids at this time. Given from SNF, Providing HCAP coverage. Patient advises she is not on home O2 and is saturating well on room air today. Sputum cx and blood cx pending. 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 Repeat EKG today shows patient is still in AFIB, normal rate. Spoke with the patient who advised she has a personnel monitor with [employer], Dr. Quinteros, and states Dr. Quinteros started her on Eliquis. She denies history of AFIB, but I do believe that she was started on metoprolol and Eliquis for this reason. She is currently rate controlled, anticoagulated, and asymptomatic. Continue Eliquis Request records from [facility]. Continue metoprolol (3) COPD (chronic obstructive pulmonary disease): Code(s): J44.9 - Chronic obstructive pulmonary disease, unspecified Status: Acute Assessment and Plan: Continue home inhaler therapy and PRN albuterol nebs. Likely not a COPD exacerbation at this time, but will continue to monitor. (4) Urinary tract infection: Qualifiers: Hematuria presence: without hematuria Urinary tract infection type: site unspecified Qualified Code(s): N39.0 - Urinary tract infection, site not specified Code(s): N39.0 - Urinary tract infection, site not specified Status: Acute Assessment and Plan: Abnormal UA upon admission. Urine cx pending. Blood cultures normal Continue cefepime/vanc empirically (5) Hyperglycemia: Code(s): R73.9 - Hyperglycemia, unspecified Status: Acute Assessment and Plan: A1c 6.4. Glucose 143. Low dose SSI with accuchecks. (6) Hypertension: Code(s): I10 - Essential (primary) hypertension Status: Acute Assessment and Plan: Continue lisinopril, amlodipine, lasix within BP parameters. Continue to monitor. (7) CAD (coronary artery disease): Code(s): I25.10 - Atherosclerotic heart disease of [place] coronary artery without angina pectoris Status: Acute Assessment and Plan: Patient reports past medical history of CABG. Records have been request from her personnel monitor. Patient is chest pain-free Start on Aspirin today. Continue to monitor. (8) Anxiety: Code(s): F41.9 - Anxiety disorder, unspecified Status: Acute Assessment and Plan: Continue zoloft and lorazepam. (9) GERD (gastroesophageal reflux disease): Code(s): K21.9 - Gastro-esophageal reflux disease without esophagitis Status: Acute Assessment and Plan: Continue protonix p.r.n. Tums (10) Electrolyte abnormality: Code(s): E87.8 - Other disorders of electrolyte and fluid balance, not elsewhere classified Status: Acute Assessment and Plan: Potassium 3.5 today after receiving 40 mEq yesterday. Could be from home home lasix. Will continue to monitor, D/C IV potassium at this time. If continues to drop, will start oral potassium. Sodium 132 today. Likely from poor p.o. intake. patient is currently asymptomatic. Continue to encourage oral intake. Consider salt tablets if sodium continues to drop on IV fluids. (11) CHF (congestive heart failure): Code(s):
--- NOTE | 2021-12-01 12:48 | ECG_ITS ---
Measurements Intervals [place] Rate: 95 P: MT: 0 QRS: -3 QRSD: 142 T: -18 QT: 374 QTc: 470 Interpretive Statements ATRIAL FIBRILLATION RIGHT BUNDLE BRANCH BLOCK CONSIDER INFERIOR INFARCT, AGE INDETERMINATE BASELINE ARTIFACT- V3 ABNORMAL ECG Electronically Signed On 12-01-2021 15:32:18 CDT by Jonny Bingham D.O.
[2021-12-01] MEDS: HYDROcodone/acetaminophen (*CRX) 5-325 MG TABLET 1 TAB PO ×2 (14:07→22:34)
[2021-12-01] MEDS: LORazepam (*CRX) 0.5 MG TABLET PO ×2 (14:07→22:34)
[2021-12-01] MEDS: CALCIUM CARBONATE (OSCAL) 500 MG TABLET PO (18:41)
[2021-12-01] MEDS: FUROSEMIDE 80 MG TABLET PO (18:41)
[2021-12-02 05:57] VITALS: BP 132/76; PULSE 98; RESP 18; TEMP 37; O2SAT 95
[2021-12-02 06:17] LABS: Hematocrit 34.7 % (37.0-47.0); Hemoglobin 11.5 g/dL (12.0-15.0); Mean Corpuscular HGB Conc 33.1 g/dl (32-36); Mean Corpuscular Hemoglobin 29.3 pg (26-34); Mean Corpuscular Volume 88.3 fl (80-100); Mean Platelet Volume 10.2 fl (7.4-10.4); Platelet Count Result 233 k/mm3 (150-375); Red Blood Count 3.93 M/mm3 (4.2-5.4); White Blood Count 10.7 K/mm3 (4.5-10.0)
[2021-12-02 06:29] LABS: Anion Gap 7 mmol/L (8-16); Blood Urea Nitrogen 15 mg/dL (7-17); Calcium 8.3 mg/dL (8.4-10.2); Carbon Dioxide 28 mmol/L (22-30); Chloride 97 mmol/L (98-107); Estimated CRCL calculation 56 ml/min; Estimated Glomerular Filt Rate > 60; Glucose 136 mg/dL (65-110); Potassium 3.5 mmol/L (3.4-5.0); Sodium 132 mmol/L (137-145)
[2021-12-02] MEDS: ASPIRIN 81 MG CHEWABLE TABLET PO (09:28)
[2021-12-02] MEDS: MONTELUKAST SODIUM 10 MG TABLET PO (09:28)
[2021-12-02] MEDS: METOPROLOL TARTRATE 50 MG TAB PO ×2 (09:28→21:26)
[2021-12-02] MEDS: CALCIUM CARBONATE (OSCAL) 500 MG TABLET PO ×2 (09:28→18:10)
[2021-12-02] MEDS: LORATADINE 10 MG TABLET PO (09:29)
[2021-12-02] MEDS: ATORVASTATIN 40 MG TABLET PO (09:29)
[2021-12-02] MEDS: SERTRALINE HCL 50 MG TABLET PO (09:29)
[2021-12-02] MEDS: PANTOPRAZOLE 40 MG TABLET PO (09:29)
[2021-12-02] MEDS: FUROSEMIDE 80 MG TABLET PO ×2 (09:29→18:10)
[2021-12-02] MEDS: APIXABAN 5 MG TABLET PO ×2 (09:29→21:26)
[2021-12-02] MEDS: FLUTICASONE PROPIONATE 0.05% NA SPR 16 GM BTL (*BKC) 1 SPRAY NASAL ×2 (09:29→21:26)
[2021-12-02] MEDS: amLODIPine BESYLATE 5 MG TABLET PO (09:29)
[2021-12-02] MEDS: lisinopriL 5 MG TABLET PO (09:29)
[2021-12-02] MEDS: LORazepam (*CRX) 0.5 MG TABLET PO ×2 (09:33→18:13)
[2021-12-02] MEDS: HYDROcodone/acetaminophen (*CRX) 5-325 MG TABLET 1 TAB PO ×2 (09:33→18:13)
[2021-12-02] MEDS: FLUTICASONE/SALMETEROL 115-21 MCG INHALER 1 PUFF 2 PUFF INHALATION ×2 (10:10→19:56)
[2021-12-02 10:11] VITALS: PULSE 79; RESP 12
--- NOTE | 2021-12-02 12:53 | PM.IMPN ---
Progress Note: A&P Assessment and Plan (1) Pneumonia: Qualifiers: Laterality: right Lung location: lower lobe of lung Pneumonia type: due to unspecified organism Qualified Code(s): J18.9 - Pneumonia, unspecified organism Code(s): J18.9 - Pneumonia, unspecified organism Status: Acute Assessment and Plan: CXR shows right lower lobe consolidation and cardiomegaly. Patient recently treated for covid pneumonia. Do not suspect COPD exacerbation, will hold off on steroids at this time. Given from SNF, Providing HCAP coverage. Patient advises she is not on home O2 and is saturating well on room air today. Sputum cx and blood cx pending. 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 Repeat EKG shows patient is still in AFIB, normal rate. Spoke with the patient who advised she has a microbiological laboratory technician with [email or web address], Dr. Quinteros, and states Dr. Quinteros started her on Eliquis. She denies history of AFIB, but I do believe that she was started on metoprolol and Eliquis for this reason. She is currently rate controlled, anticoagulated, and asymptomatic. Continue Eliquis Request records from [facility]. Continue metoprolol (3) COPD (chronic obstructive pulmonary disease): Code(s): J44.9 - Chronic obstructive pulmonary disease, unspecified Status: Acute Assessment and Plan: Continue home inhaler therapy and PRN albuterol nebs. Likely not a COPD exacerbation at this time, but will continue to monitor. (4) Urinary tract infection: Qualifiers: Hematuria presence: without hematuria Urinary tract infection type: site unspecified Qualified Code(s): N39.0 - Urinary tract infection, site not specified Code(s): N39.0 - Urinary tract infection, site not specified Status: Acute Assessment and Plan: Abnormal UA upon admission. Urine w/ Citrobacter Koseri, sensitive to Cefepime Blood cultures NGTD (5) Hyperglycemia: Code(s): R73.9 - Hyperglycemia, unspecified Status: Acute Assessment and Plan: A1c 6.4. Glucose 136. Low dose SSI with accuchecks. (6) Hypertension: Code(s): I10 - Essential (primary) hypertension Status: Acute Assessment and Plan: Continue lisinopril, amlodipine, lasix within BP parameters. Continue to monitor. (7) CAD (coronary artery disease): Code(s): I25.10 - Atherosclerotic heart disease of [place] coronary artery without angina pectoris Status: Acute Assessment and Plan: Patient reports past medical history of CABG. Records have been request from her microbiological laboratory technician. Patient is chest pain-free Started on Aspirin. Continue to monitor. (8) Anxiety: Code(s): F41.9 - Anxiety disorder, unspecified Status: Acute Assessment and Plan: Continue zoloft and lorazepam. (9) GERD (gastroesophageal reflux disease): Code(s): K21.9 - Gastro-esophageal reflux disease without esophagitis Status: Acute Assessment and Plan: Continue protonix p.r.n. Tums (10) Electrolyte abnormality: Code(s): E87.8 - Other disorders of electrolyte and fluid balance, not elsewhere classified Status: Acute Assessment and Plan: Potassium -monitored and replaced, 3.5 today Sodium - Likely from poor p.o. intake. patient is currently asymptomatic. 132 today. Continue to encourage oral intake. Consider salt tablets if sodium continues to drop. (11) CHF (congestive heart failure): Code(s): I50.9 - Heart failure, unspecified Status: Acute Assessment and Plan: Patient reports CHF managed by her microbiological laboratory technician. No current exacerbation. Records have be
[2021-12-02 14:00] VITALS: BP 108/60; PULSE 76; RESP 16; TEMP 37; O2SAT 96
[2021-12-02 19:57] VITALS: PULSE 89; O2SAT 94
[2021-12-02 21:13] VITALS: BP 97/55; PULSE 74; RESP 16; TEMP 37.2; O2SAT 93
[2021-12-02 21:26] VITALS: PULSE 86
[2021-12-03 04:44] VITALS: BP 112/55; PULSE 95; RESP 18; TEMP 36.6; O2SAT 93
[2021-12-03 06:20] LABS: Basophils Percent Auto 0.4 % (0.2-1.2); Eosinophils Absolute Auto 0.2 K/mm3 (0-0.3); Eosinophils Percent Auto 2.5 % (0-4.4); Hematocrit 34.3 % (37.0-47.0); Hemoglobin 10.7 g/dL (12.0-15.0); Immature Granulocyte Absolute 0.05 K/mm3 (0.00-0.031); Immature Granulocyte Percent A 0.5 % (0-0.5); Lymphocytes Absolute Auto 1.26 K/mm3 (0.9-3.2); Lymphocytes Percent Auto 13.5 % (18.3-44.2); Mean Corpuscular HGB Conc 31.2 g/dl (32-36); Mean Corpuscular Hemoglobin 28.8 pg (26-34); Mean Corpuscular Volume 92.2 fl (80-100); Mean Platelet Volume 9.8 fl (7.4-10.4); Monocytes Percent Auto 10.4 % (2.6-8.5); Neutrophils Absolute Auto 6.8 K/mm3 (1.3-6.7); Neutrophils Percent Auto 72.7 % (45.5-73.1); Platelet Count Result 261 k/mm3 (150-375); Red Blood Count 3.72 M/mm3 (4.2-5.4); Red Cell Distribution Width 13.9 % (11.5-14.5); White Blood Count 9.3 K/mm3 (4.5-10.0)
[2021-12-03 06:43] LABS: Anion Gap 7 mmol/L (8-16); Blood Urea Nitrogen 18 mg/dL (7-17); Calcium 8.1 mg/dL (8.4-10.2); Carbon Dioxide 28 mmol/L (22-30); Chloride 95 mmol/L (98-107); Estimated CRCL calculation 43 ml/min; Estimated Glomerular Filt Rate > 60; Glucose 119 mg/dL (65-110); Potassium 3.2 mmol/L (3.4-5.0); Sodium 130 mmol/L (137-145)
[2021-12-03] MEDS: FLUTICASONE/SALMETEROL 115-21 MCG INHALER 1 PUFF 2 PUFF INHALATION ×2 (09:04→20:21)
[2021-12-03 09:05] VITALS: PULSE 101; RESP 13
[2021-12-03] MEDS: FLUTICASONE PROPIONATE 0.05% NA SPR 16 GM BTL (*BKC) 1 SPRAY NASAL ×2 (09:53→20:01)
[2021-12-03] MEDS: HYDROcodone/acetaminophen (*CRX) 5-325 MG TABLET 1 TAB PO ×2 (09:55→19:35)
[2021-12-03] MEDS: amLODIPine BESYLATE 5 MG TABLET PO (09:56)
[2021-12-03] MEDS: APIXABAN 5 MG TABLET PO ×2 (09:56→19:58)
[2021-12-03] MEDS: ASPIRIN 81 MG CHEWABLE TABLET PO (09:56)
[2021-12-03] MEDS: LORATADINE 10 MG TABLET PO (09:56)
[2021-12-03] MEDS: CALCIUM CARBONATE (OSCAL) 500 MG TABLET PO ×2 (09:56→17:30)
[2021-12-03] MEDS: lisinopriL 5 MG TABLET PO (09:57)
[2021-12-03] MEDS: METOPROLOL TARTRATE 50 MG TAB PO ×2 (09:57→19:58)
[2021-12-03] MEDS: ATORVASTATIN 40 MG TABLET PO (09:57)
[2021-12-03] MEDS: FUROSEMIDE 80 MG TABLET PO ×2 (09:57→17:30)
[2021-12-03] MEDS: PANTOPRAZOLE 40 MG TABLET PO (09:57)
[2021-12-03] MEDS: SERTRALINE HCL 50 MG TABLET PO (09:57)
[2021-12-03] MEDS: MONTELUKAST SODIUM 10 MG TABLET PO (09:57)
[2021-12-03] MEDS: LORazepam (*CRX) 0.5 MG TABLET PO ×2 (10:02→19:37)
--- NOTE | 2021-12-03 10:12 | PM.IMPN ---
Progress Note: A&P Assessment and Plan (1) Pneumonia: Qualifiers: Laterality: right Lung location: lower lobe of lung Pneumonia type: due to unspecified organism Qualified Code(s): J18.9 - Pneumonia, unspecified organism Code(s): J18.9 - Pneumonia, unspecified organism Status: Acute Assessment and Plan: CXR shows right lower lobe consolidation and cardiomegaly. Patient recently treated for covid pneumonia. Do not suspect COPD exacerbation, will hold off on steroids at this time. Given from SNF, Providing HCAP coverage. Patient advises she is not on home O2 and is saturating well on room air today. Sputum cx and blood cx pending. 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 Repeat EKG shows patient is still in AFIB, normal rate. Spoke with the patient who advised she has a belt press operator with [employer], Dr. Quinteros, and states Dr. Quinteros started her on Eliquis. She denies history of AFIB, but I do believe that she was started on metoprolol and Eliquis for this reason. She is currently rate controlled, anticoagulated, and asymptomatic. Continue Eliquis Request records from [facility]. Continue metoprolol (3) COPD (chronic obstructive pulmonary disease): Code(s): J44.9 - Chronic obstructive pulmonary disease, unspecified Status: Acute Assessment and Plan: Continue home inhaler therapy and PRN albuterol nebs. Likely not a COPD exacerbation at this time, but will continue to monitor. (4) Urinary tract infection: Qualifiers: Hematuria presence: without hematuria Urinary tract infection type: site unspecified Qualified Code(s): N39.0 - Urinary tract infection, site not specified Code(s): N39.0 - Urinary tract infection, site not specified Status: Acute Assessment and Plan: Abnormal UA upon admission. Urine w/ Citrobacter Koseri, sensitive to Cefepime Blood cultures NGTD (5) Hyperglycemia: Code(s): R73.9 - Hyperglycemia, unspecified Status: Acute Assessment and Plan: A1c 6.4. Glucose 119. Low dose SSI with accuchecks. (6) Hypertension: Code(s): I10 - Essential (primary) hypertension Status: Acute Assessment and Plan: Continue lisinopril, amlodipine, lasix within BP parameters. Continue to monitor. (7) CAD (coronary artery disease): Code(s): I25.10 - Atherosclerotic heart disease of [place] coronary artery without angina pectoris Status: Acute Assessment and Plan: Patient reports past medical history of CABG. Records have been request from her belt press operator. Patient is chest pain-free Started on Aspirin. Continue to monitor. (8) Anxiety: Code(s): F41.9 - Anxiety disorder, unspecified Status: Acute Assessment and Plan: Continue zoloft and lorazepam. (9) GERD (gastroesophageal reflux disease): Code(s): K21.9 - Gastro-esophageal reflux disease without esophagitis Status: Acute Assessment and Plan: Continue protonix p.r.n. Tums (10) Electrolyte abnormality: Code(s): E87.8 - Other disorders of electrolyte and fluid balance, not elsewhere classified Status: Acute Assessment and Plan: Potassium -monitored and replaced, continues to be mildly low, started 10 meq daily Sodium - Likely from poor p.o. intake. patient is currently asymptomatic. 130 today. Continue to encourage oral intake. Consider salt tablets if sodium continues to drop. (11) CHF (congestive heart elijah
[2021-12-03] MEDS: POTASSIUM CHLORIDE 10 MEQ TABLET.ER PO (12:08)
[2021-12-03 13:52] VITALS: BP 95/55; PULSE 86; RESP 18; TEMP 37.3; O2SAT 95
[2021-12-03 16:54] LABS: Vancomycin Trough 10.5 ug/mL (10.0-20.0)
[2021-12-03 19:58] VITALS: PULSE 96
[2021-12-03 20:02] VITALS: BP 125/68; PULSE 96; RESP 18; TEMP 36.7; O2SAT 96
[2021-12-03 20:22] VITALS: O2SAT 96
[2021-12-04] VITALS (7 sets, daily range): BP systolic 98–121; BP diastolic 49–58; PULSE 78–89; RESP 16–20; TEMP 36.1–36.6; O2SAT 94–98
[2021-12-04 05:49] LABS: Basophils Percent Auto 0.4 % (0.2-1.2); Eosinophils Absolute Auto 0.3 K/mm3 (0-0.3); Eosinophils Percent Auto 3.4 % (0-4.4); Hematocrit 31.6 % (37.0-47.0); Hemoglobin 10.6 g/dL (12.0-15.0); Immature Granulocyte Absolute 0.07 K/mm3 (0.00-0.031); Immature Granulocyte Percent A 0.9 % (0-0.5); Lymphocytes Absolute Auto 1.04 K/mm3 (0.9-3.2); Lymphocytes Percent Auto 12.6 % (18.3-44.2); Mean Corpuscular HGB Conc 33.5 g/dl (32-36); Mean Corpuscular Hemoglobin 30.1 pg (26-34); Mean Corpuscular Volume 89.8 fl (80-100); Mean Platelet Volume 9.2 fl (7.4-10.4); Monocytes Percent Auto 12.6 % (2.6-8.5); Neutrophils Absolute Auto 5.8 K/mm3 (1.3-6.7); Neutrophils Percent Auto 70.1 % (45.5-73.1); Platelet Count Result 276 k/mm3 (150-375); Red Blood Count 3.52 M/mm3 (4.2-5.4); Red Cell Distribution Width 13.6 % (11.5-14.5); White Blood Count 8.2 K/mm3 (4.5-10.0)
[2021-12-04 06:03] LABS: Anion Gap 8 mmol/L (8-16); Blood Urea Nitrogen 18 mg/dL (7-17); Calcium 8.5 mg/dL (8.4-10.2); Carbon Dioxide 29 mmol/L (22-30); Chloride 95 mmol/L (98-107); Estimated CRCL calculation 43 ml/min; Estimated Glomerular Filt Rate > 60; Glucose 127 mg/dL (65-110); Sodium 132 mmol/L (137-145)
[2021-12-04] MEDS: FLUTICASONE/SALMETEROL 115-21 MCG INHALER 1 PUFF 2 PUFF INHALATION ×2 (07:13→19:37)
[2021-12-04] MEDS: HYDROcodone/acetaminophen (*CRX) 5-325 MG TABLET 1 TAB PO ×2 (08:44→16:02)
[2021-12-04] MEDS: POTASSIUM CHLORIDE 20 MEQ PACKET (FOR LIQUID) 40 MEQ PO (08:44)
[2021-12-04] MEDS: FLUTICASONE PROPIONATE 0.05% NA SPR 16 GM BTL (*BKC) 1 SPRAY NASAL ×2 (08:45→19:50)
[2021-12-04] MEDS: LORazepam (*CRX) 0.5 MG TABLET PO ×3 (08:45→17:47)
[2021-12-04] MEDS: ATORVASTATIN 40 MG TABLET PO (08:46)
[2021-12-04] MEDS: SERTRALINE HCL 50 MG TABLET PO (08:46)
[2021-12-04] MEDS: MONTELUKAST SODIUM 10 MG TABLET PO (08:46)
[2021-12-04] MEDS: lisinopriL 5 MG TABLET PO (08:46)
[2021-12-04] MEDS: POTASSIUM CHLORIDE 10 MEQ TABLET.ER PO (08:46)
[2021-12-04] MEDS: PANTOPRAZOLE 40 MG TABLET PO (08:46)
[2021-12-04] MEDS: APIXABAN 5 MG TABLET PO ×2 (08:46→19:49)
[2021-12-04] MEDS: amLODIPine BESYLATE 5 MG TABLET PO (08:46)
[2021-12-04] MEDS: FUROSEMIDE 80 MG TABLET PO ×2 (08:46→16:06)
[2021-12-04] MEDS: METOPROLOL TARTRATE 50 MG TAB PO ×2 (08:47→19:49)
[2021-12-04] MEDS: LORATADINE 10 MG TABLET PO (08:47)
[2021-12-04] MEDS: ASPIRIN 81 MG CHEWABLE TABLET PO (08:47)
[2021-12-04] MEDS: CALCIUM CARBONATE (OSCAL) 500 MG TABLET PO ×2 (08:47→16:06)
[2021-12-04] MEDS: LIDOCAINE HCL 1% PF INJ 5 ML VIAL INFILTRATE (09:50)
[2021-12-04] MEDS: CENTRAL LINE FLUSH 10 ML IV PUSH ×2 (13:46→22:15)
--- NOTE | 2021-12-04 15:26 | PM.IMPN ---
Progress Note: A&P Assessment and Plan (1) Pneumonia: Qualifiers: Laterality: right Lung location: lower lobe of lung Pneumonia type: due to unspecified organism Qualified Code(s): J18.9 - Pneumonia, unspecified organism Code(s): J18.9 - Pneumonia, unspecified organism Status: Acute Assessment and Plan: - Continue Abx per PICC for RLL PNA until Tuesday. - Monitor respiratory status. (2) Atrial fibrillation: Qualifiers: Atrial fibrillation type: unspecified Qualified Code(s): I48.91 - Unspecified atrial fibrillation Code(s): I48.91 - Unspecified atrial fibrillation Status: Acute Assessment and Plan: - A-fib with rate controlled. - Continue Eliquis and Metoprolol. (3) COPD (chronic obstructive pulmonary disease): Qualifiers: COPD type: unspecified COPD Qualified Code(s): J44.9 - Chronic obstructive pulmonary disease, unspecified Code(s): J44.9 - Chronic obstructive pulmonary disease, unspecified Status: Chronic Assessment and Plan: - Not in acute exacerbation. - Continue home breathing medications. - Monitor (4) Urinary tract infection: Qualifiers: Hematuria presence: without hematuria Urinary tract infection type: site unspecified Qualified Code(s): N39.0 - Urinary tract infection, site not specified Code(s): N39.0 - Urinary tract infection, site not specified Status: Acute Assessment and Plan: - Abnormal UA upon admission. - Urine w/ Citrobacter Koseri, sensitive to Cefepime - Continue Cefepime until Tuesday. (5) Hyperglycemia: Code(s): R73.9 - Hyperglycemia, unspecified Status: Acute Assessment and Plan: - A1c 6.4. - Continue SSI, low dose - Continue Glucose checks AC and HS - Diabetic diet. (6) Hypertension: Qualifiers: Hypertension type: unspecified Qualified Code(s): I10 - Essential (primary) hypertension Code(s): I10 - Essential (primary) hypertension Status: Acute Assessment and Plan: - Continue home medications and monitor. (7) CAD (coronary artery disease): Qualifiers: Coronary Disease-Associated Artery/Lesion type: unspecified vessel or lesion type [place] vs. transplanted heart: [place] heart Associated angina: without angina Qualified Code(s): I25.10 - Atherosclerotic heart disease of [place] coronary artery without angina pectoris Code(s): I25.10 - Atherosclerotic heart disease of [place] coronary artery without angina pectoris Status: Chronic Assessment and Plan: - Patient reports past medical history of CABG. (8) Anxiety: Code(s): F41.9 - Anxiety disorder, unspecified Status: Chronic Assessment and Plan: - Continue zoloft and lorazepam. (9) GERD (gastroesophageal reflux disease): Qualifiers: Esophagitis presence: esophagitis presence not specified Qualified Code(s): K21.9 - Gastro-esophageal reflux disease without esophagitis Code(s): K21.9 - Gastro-esophageal reflux disease without esophagitis Status: Chronic Assessment and Plan: - Continue protonix - p.r.n. Tums (10) Electrolyte abnormality: Code(s): E87.8 - Other disorders of electrolyte and fluid balance, not elsewhere classified Status: Acute Assessment and Plan: - Potassium today was 3.0. Pt. given an additional dose of 40 mEq with her already scheduled 10 mEq. - Check BMP in AM. (11) CHF (congestive heart failure): Qualifiers: Heart failure type: unspecified Heart failure chronicity: unspecified Qualified Code(s): I50.9 - Heart failure, unspecified Code(s): I50.9 - Heart failure, unspecified Status: Acute Assessment and Plan: - Not in current exacerbation. - Continue home diuretics. - Follow up as outpatient with visual display manager as needed. - Pt. appears Euvolemic with improving respiratory status wit
[2021-12-05] MEDS: HYDROcodone/acetaminophen (*CRX) 5-325 MG TABLET 1 TAB PO ×2 (00:29→08:50)
[2021-12-05] MEDS: CENTRAL LINE FLUSH 20 ML IV PUSH (05:29)
[2021-12-05 05:32] LABS: Basophils Absolute Auto 0.1 K/mm3 (0.0-0.1); Basophils Percent Auto 0.6 % (0.2-1.2); Eosinophils Absolute Auto 0.3 K/mm3 (0-0.3); Eosinophils Percent Auto 4.2 % (0-4.4); Hematocrit 33.5 % (37.0-47.0); Hemoglobin 10.7 g/dL (12.0-15.0); Immature Granulocyte Absolute 0.06 K/mm3 (0.00-0.031); Immature Granulocyte Percent A 0.7 % (0-0.5); Lymphocytes Absolute Auto 1.14 K/mm3 (0.9-3.2); Lymphocytes Percent Auto 13.9 % (18.3-44.2); Mean Corpuscular HGB Conc 31.9 g/dl (32-36); Mean Corpuscular Hemoglobin 29.4 pg (26-34); Mean Platelet Volume 9.3 fl (7.4-10.4); Monocytes Absolute Auto 0.9 K/mm3 (0.1-0.6); Monocytes Percent Auto 10.9 % (2.6-8.5); Neutrophils Absolute Auto 5.7 K/mm3 (1.3-6.7); Neutrophils Percent Auto 69.7 % (45.5-73.1); Platelet Count Result 257 k/mm3 (150-375); Red Blood Count 3.64 M/mm3 (4.2-5.4); Red Cell Distribution Width 13.4 % (11.5-14.5); White Blood Count 8.2 K/mm3 (4.5-10.0)
[2021-12-05 05:43] LABS: Alanine Aminotransferase 21 U/L (4-35); Albumin Level 3.2 g/dL (3.5-5.1); Alkaline Phosphatase 88 U/L (38-126); Anion Gap 5 mmol/L (8-16); Aspartate Amino Transferase 41 U/L (14-36); Bilirubin,Total 0.8 mg/dL (0.2-1.3); Blood Urea Nitrogen 18 mg/dL (7-17); Calcium 8.6 mg/dL (8.4-10.2); Carbon Dioxide 33 mmol/L (22-30); Chloride 94 mmol/L (98-107); Estimated CRCL calculation 43 ml/min; Estimated Glomerular Filt Rate > 60; Glucose 120 mg/dL (65-110); Magnesium 1.6 mg/dL (1.6-2.3); Potassium 3.6 mmol/L (3.4-5.0); Sodium 132 mmol/L (137-145)
[2021-12-05 05:49] VITALS: BP 123/58; PULSE 72; RESP 16; TEMP 36.8; O2SAT 98
[2021-12-05] MEDS: CALCIUM CARBONATE (OSCAL) 500 MG TABLET PO (08:39)
[2021-12-05] MEDS: POTASSIUM CHLORIDE 10 MEQ TABLET.ER PO (08:39)
[2021-12-05] MEDS: MONTELUKAST SODIUM 10 MG TABLET PO (08:39)
[2021-12-05] MEDS: APIXABAN 5 MG TABLET PO (08:39)
[2021-12-05] MEDS: lisinopriL 5 MG TABLET PO (08:39)
[2021-12-05] MEDS: ASPIRIN 81 MG CHEWABLE TABLET PO (08:40)
[2021-12-05] MEDS: METOPROLOL TARTRATE 50 MG TAB PO (08:40)
[2021-12-05] MEDS: SERTRALINE HCL 50 MG TABLET PO (08:40)
[2021-12-05] MEDS: LORATADINE 10 MG TABLET PO (08:40)
[2021-12-05] MEDS: amLODIPine BESYLATE 5 MG TABLET PO (08:40)
[2021-12-05] MEDS: FLUTICASONE PROPIONATE 0.05% NA SPR 16 GM BTL (*BKC) 1 SPRAY NASAL (08:40)
[2021-12-05] MEDS: ATORVASTATIN 40 MG TABLET PO (08:40)
[2021-12-05] MEDS: PANTOPRAZOLE 40 MG TABLET PO (08:40)
[2021-12-05] MEDS: FUROSEMIDE 80 MG TABLET PO (08:40)
[2021-12-05] MEDS: LORazepam (*CRX) 0.5 MG TABLET PO (08:50)
[2021-12-05] MEDS: FLUTICASONE/SALMETEROL 115-21 MCG INHALER 1 PUFF 2 PUFF INHALATION (09:15)
[2021-12-05 09:16] VITALS: O2SAT 95
--- NOTE | 2021-12-05 09:40 | PM.DS ---
DS: Admitting Diagnosis Discharge Date 12/05/2021 Admitting Diagnosis Pneumonia, urinary tract infection, hypokalemia, hyperglycemia, hyponatremia, hypertension, coronary artery disease, anxiety, GERD DS: Discharge Diagnosis Discharge Diagnosis (1) Pneumonia: Qualifiers: Laterality: right Lung location: lower lobe of lung Pneumonia type: due to unspecified organism Qualified Code(s): J18.9 - Pneumonia, unspecified organism Code(s): J18.9 - Pneumonia, unspecified organism Status: Acute Assessment and Plan: - Continue Abx per PICC for RLL PNA until Tuesday. To be dosed with Vancomycin and Cefepime. - Monitor respiratory status. -date of discharge: 12/05/2021 -patient is stable this morning, states she is breathing a little bit better and feels like she is ready to go home. Continue vancomycin and cefepime. (2) Atrial fibrillation: Qualifiers: Atrial fibrillation type: unspecified Qualified Code(s): I48.91 - Unspecified atrial fibrillation Code(s): I48.91 - Unspecified atrial fibrillation Status: Acute Assessment and Plan: - A-fib with rate controlled. - Continue Eliquis and Metoprolol. -date of discharge: 12/05/2021 -continue home medications (3) COPD (chronic obstructive pulmonary disease): Qualifiers: COPD type: unspecified COPD Qualified Code(s): J44.9 - Chronic obstructive pulmonary disease, unspecified Code(s): J44.9 - Chronic obstructive pulmonary disease, unspecified Status: Chronic Assessment and Plan: - Not in acute exacerbation. - Continue home breathing medications. - Monitor -date of discharge: 12/05/2021 -continue home medications. This diagnosis is chronic only and was not acute exacerbation on or during this admission. (4) Urinary tract infection: Qualifiers: Hematuria presence: without hematuria Urinary tract infection type: site unspecified Qualified Code(s): N39.0 - Urinary tract infection, site not specified Code(s): N39.0 - Urinary tract infection, site not specified Status: Acute Assessment and Plan: -patient's urine grew out Citrobacter Koseri which is sensitive to cefepime. -date of discharge: 12/05/2021 -patient has PICC line placed in right upper extremity and she will be discharged to home today to continue IV antibiotics until TuesdayDecember 08. PICC line to be discontinued at that time. (5) Hyperglycemia: Code(s): R73.9 - Hyperglycemia, unspecified Status: Acute Assessment and Plan: - A1c 6.4. - Continue SSI, low dose - Continue Glucose checks AC and HS - Diabetic diet. -date of discharge: 12/05/2021 -stable chronic diagnosis for patient. She had good glucose control during her inpatient admission. We will continue home regimen upon discharge as her A1c is 6.4. (6) Hypertension: Qualifiers: Hypertension type: unspecified Qualified Code(s): I10 - Essential (primary) hypertension Code(s): I10 - Essential (primary) hypertension Status: Acute Assessment and Plan: - Continue home medications and monitor. -date of discharge: 12/05/2021 -will continue home medications as patient has been well controlled with her hypertension during this inpatient admission. No changes have been made. (7) CAD (coronary artery disease): Qualifiers: Coronary Disease-Associated Artery/Lesion type: unspecified vessel or lesion type [place] vs. transplanted heart: [place] heart Associated angina: without angina Qualified Code(s): I25.10 - Atherosclerotic heart disease of [place] coronary artery without angina pectoris Code(s): I25.10 - Atherosclerotic heart disease of [place] coronary artery without angina pectoris Status: Chronic Assessment and Plan: - Patient reports past medical history of CABG. -date of discharge: 12/05/2021 -history only. No acute issues related to this history of CABG for c
[2021-12-05 10:11] LABS: EDCOVIDSCREEN Negative (Negative)
[2021-12-05 22:02] LABS: Legionella pneumophila Ag Ur Not Detected (Not Detected)
== END 2021-12-05 13:40 | DRG 689 ==
LOC: ANHED 17:18 → ANH3MED 21:53
PROVIDERS: Emergency Medicine; Physician Assistant; Admitting Provider Internal Medicine; Emergency Provider Nurse Practitioner Family; PCP Family Medicine; Visit Provider Nurse Practitioner Adult Health
DX: N39.0 Urinary tract infection, site not specified (principal); J18.9 Pneumonia, unspecified organism; J44.0 Chronic obstructive pulmonary disease with (acute) lower respiratory infection; E87.1 Hypo-osmolality and hyponatremia; Z20.822 Contact with and (suspected) exposure to COVID-19; M25.562 Pain in left knee; Z86.16 Personal history of COVID-19; F32.A Depression, unspecified; E87.6 Hypokalemia; R73.9 Hyperglycemia, unspecified; I25.10 Atherosclerotic heart disease of native coronary artery without angina pectoris; F41.9 Anxiety disorder, unspecified; K21.9 Gastro-esophageal reflux disease without esophagitis; I48.91 Unspecified atrial fibrillation; I45.10 Unspecified right bundle-branch block; E87.8 Other disorders of electrolyte and fluid balance, not elsewhere classified; I11.0 Hypertensive heart disease with heart failure; I50.9 Heart failure, unspecified; Z79.82 Long term (current) use of aspirin
CPT/HCPCS: 36415; 36569; 70450; 71045; 73521; 73552; 73564; 80048; 80053; 80202; 81001; 82306; 83036; 83605; 83735; 85025; 85027; 87040; 87077; 87081; 87086; 87088; 87186; 87426; 87449; 87804; 93005; 94640; 99285; A9270; C1751; C9803; J0692; J0696; J2405; J2765; J3370

== ENCOUNTER 2022-04-10 20:29 | Inpatient (IN) | payer MEDICARE, SELFPAY ==
[2022-04-10] VITALS (7 sets, daily range): BP systolic 89–115; BP diastolic 60–64; PULSE 85–96; RESP 12–18; TEMP 37; O2SAT 97–100
--- NOTE | ~2022-04-10 | XR_ITS ---
EXAMINATION: XR chest 1V portable Exam Date/Time: 04/10/2022 21:18 CDT HISTORY: AMS Comparison: 12/04/2021. RESULT: Lines, tubes, and devices: Intact sternotomy wires. Lungs and pleura: Senescent change. Bibasilar linear scar. Subsegmental bibasilar atelectasis. Cardiomediastinal silhouette: Stable cardiomegaly. Other: No acute osseous or upper abdominal finding. IMPRESSION: No acute cardiopulmonary process. Reviewed, dictated and finalized at location [facility].
--- NOTE | 2022-04-10 20:30 | PC.NURSE ---
Per EMS pt spo2 was at 88% on RA and placed on 2L NC en route. Pt was sating at 90% on RA upon arrival and placed on 2L NC.
--- NOTE | 2022-04-10 20:40 | ECG_ITS ---
Measurements Intervals [place] Rate: 90 P: [place]: 0 QRS: 25 QRSD: 143 T: -7 QT: 379 QTc: 464 Interpretive Statements ATRIAL FIBRILLATION RIGHT BUNDLE BRANCH BLOCK CONSIDER INFERIOR INFARCT, AGE INDETERMINATE BASELINE ARTIFACT- I, II, AVR ABNORMAL ECG COMPARED TO ECG 12/01/2021 14:42:57 NO SIGNIFICANT CHANGES Electronically Signed On 04-10-2022 21:41:15 CDT by Jonny Bingham D.O.
--- NOTE | 2022-04-10 20:40 | ED.GENADULT ---
HPI - General Adult General Chief complaint: Altered Mental Status Stated complaint: decreased LOC and decreased O2 sats Time Seen by Provider: 04/10/22 20:34 Source: patient and EMS Mode of arrival: ambulatory History of Present Illness HPI narrative: Patient is 86 years old white female came from half-way by ambulance because of low blood pressure in the 80s and low oxygenation in the 88 on room air. Patient received 250 cc of normal saline prior to arrival to the emergency room and started on oxygen by nasal cannula at 2 L/min. On arrival to the ED blood pressure is 109/61, patient is asymptomatic, awake, alert and oriented x4 does not know why she is here. She denies any fever, chills, nausea, vomiting, diarrhea, constipation, chest pain, shortness of breath, headache, back pain. Patient is DNR. History of coronary disease, CHF on Lasix 80 mg twice daily, COPD, diabetes, anxiety, GERD and hypertension Related Data Home Medications Medication Instructions Recorded Confirmed Antacid (calcium carbonate) 500 mg PO PRN PRN GERD w/o 11/30/21 11/30/21 esophagitis Singulair 10 mg PO DAILY copd 11/30/21 11/30/21 amlodipine 5 mg tablet 5 mg PO DAILY hypertension 11/30/21 11/30/21 apixaban 5 mg tablet (Eliquis) 5 mg PO BID anticoagulation 11/30/21 11/30/21 atorvastatin 40 mg tablet 40 mg PO DAILY hyperlipidemia 11/30/21 11/30/21 cetirizine 10 mg tablet 10 mg PO DAILY allergy 11/30/21 11/30/21 fluticasone 250 mcg-salmeterol 50 1 inh inhalation BID COPD 11/30/21 11/30/21 mcg/dose blistr powdr for inhalation (Advair Diskus) fluticasone propionate 1 spray EACH NARE DAILY 11/30/21 11/30/21 furosemide 80 mg tablet 80 mg PO BID CAD 11/30/21 11/30/21 lisinopril 5 mg tablet 5 mg PO DAILY hypertension 11/30/21 11/30/21 loperamide 2 mg PO PRN PRN Diarrhea 11/30/21 11/30/21 meclizine 25 mg tablet 25 mg PO QID nausea 11/30/21 11/30/21 metoprolol tartrate 50 mg tablet 50 mg PO BID hypertension 11/30/21 11/30/21 pantoprazole 40 mg tablet,delayed 40 mg PO DAILY GERD 11/30/21 11/30/21 release senna-docusate sodium 8.6 - 50 mg PO DAILY PRN 11/30/21 11/30/21 Constipation sertraline 50 mg tablet 50 mg PO DAILY anxiety 11/30/21 11/30/21 Allergies Allergy/AdvReac Type Severity Reaction Status Date / Time clonidine Allergy Mild Unknown Verified 11/30/21 23:32 codeine Allergy Unknown Verified 11/30/21 23:32 diphenhydramine Allergy Unknown Verified 11/30/21 23:32 Iodinated Contrast Media Allergy Unknown Verified 11/30/21 23:32 morphine Allergy Unknown Verified 11/30/21 23:32 oxycodone Allergy Unknown Verified 11/30/21 23:32 tramadol Allergy Unknown Verified 11/30/21 23:32 Review of Systems Review of Systems: All systems reviewed & are unremarkable except as noted in HPI and below PMFSH Social History Social History Smoking status: Never smoker Second hand tobacco smoke exposure: No Alcohol intake: never Substance use: never Spiritual care concerns: No (Hindu) Exam Narrative: General appearance: Well-developed, well-nourished Skin: Normal color Head: Normocephalic, nontraumatic Eyes: Clear conjunctiva ENT: Oropharynx normal, ears normal, nose normal Neck: Supple, nontender Chest and respiratory: Airway patent, no respiratory distress, no accessory muscle use Heart: Regular rate/rhythm Abdomen: Soft, nontender, no organomegaly, quiet bowel sounds Vascular: Normal peripheral pulses, normal capillary refill. Musculoskeletal: Normal range of motion, nontender back Neurologic: Alert and oriented ?3, [employer] is normal as tested, no gross motor deficit Course Vital Signs Vital signs: Vit
--- NOTE | 2022-04-10 20:45 | PC.NURSE ---
Pt from [facility].
[2022-04-10] MEDS: SODIUM CHLORIDE 0.9% IV 1,000 ML 999 ML IV CONT (20:51)
--- NOTE | 2022-04-10 21:04 | PC.NURSE ---
Per EDP pt was removed off of oxygen. PT O2 sats of 96% after 10mins on RA.
[2022-04-10 21:12] LABS: Basophils Percent Auto 0.1 % (0.2-1.2); Eosinophils Absolute Auto 0.1 K/mm3 (0-0.3); Eosinophils Percent Auto 0.7 % (0-4.4); Hematocrit 30.6 % (37.0-47.0); Hemoglobin 9.6 g/dL (12.0-15.0); Immature Granulocyte Absolute 0.05 K/mm3 (0.00-0.031); Immature Granulocyte Percent A 0.5 % (0-0.5); Lymphocytes Absolute Auto 1.22 K/mm3 (0.9-3.2); Lymphocytes Percent Auto 12.2 % (18.3-44.2); Mean Corpuscular HGB Conc 31.4 g/dl (32-36); Mean Corpuscular Hemoglobin 26.2 pg (26-34); Mean Corpuscular Volume 83.4 fl (80-100); Mean Platelet Volume 8.5 fl (7.4-10.4); Monocytes Absolute Auto 0.7 K/mm3 (0.1-0.6); Monocytes Percent Auto 7.3 % (2.6-8.5); Neutrophils Absolute Auto 7.9 K/mm3 (1.3-6.7); Neutrophils Percent Auto 79.2 % (45.5-73.1); Platelet Count Result 386 k/mm3 (150-375); Red Blood Count 3.67 M/mm3 (4.2-5.4); Red Cell Distribution Width 15.1 % (11.5-14.5)
[2022-04-10 21:17] LABS: Appearance Urine Turbid (Clear); Bilirubin Urine Negative (Negative); Blood Urine 3+ (Negative); Color Urine Yellow (Yellow); Glucose Urine UA Negative (Negative); Ketones Urine Negative (Negative); Leukocyte Esterase Ur 3+ LEU/UL (Negative); Nitrate Urine Negative (Negative); Protein Urine 2+ mg/dL (Negative); pH Urine 7.5 (5.0-9.0)
[2022-04-10 21:21] LABS: Bacteria Urine 2+ /hpf; RBC Urine >75 /hpf (0-2); WBC Clumps Urine Present /HPF; WBC Urine >75 /hpf
[2022-04-10 21:22] LABS: Add Urine Microscopic? YES
[2022-04-10 21:23] LABS: Lactic Acid Reflex 1.7 mmol/L (0.7-2.0)
[2022-04-10 21:24] LABS: Alanine Aminotransferase 22 U/L (6-35); Albumin Level 3.8 g/dL (3.5-5.1); Alkaline Phosphatase 98 U/L (38-126); Anion Gap 15 mmol/L (8-16); Aspartate Amino Transferase 31 U/L (14-36); Bilirubin,Total 0.5 mg/dL (0.2-1.3); Blood Urea Nitrogen 32 mg/dL (7-17); Calcium 8.8 mg/dL (8.4-10.2); Carbon Dioxide 25 mmol/L (22-30); Chloride 93 mmol/L (98-107); Estimated CRCL calculation 32 ml/min; Estimated Glomerular Filt Rate 47; Glucose 144 mg/dL (65-110); INR 3.6; Partial Thromboplastin Time 76.7 SECONDS (22.3-36.8); Potassium 3.9 mmol/L (3.4-5.0); Prothrombin Time 34.8 Seconds (11.1-14.7); Sodium 133 mmol/L (137-145)
[2022-04-10 21:31] LABS: CRP 7.4 mg/dL (<1.0)
[2022-04-10 21:41] LABS: Alveolar/Arterial O2 Gradient 36.8 mmHg; Base Excess ABG 2.3 mEq/l (+/-2.0); Fractional Inspired Oxygen 21 %; HCO3 ABG 26.1 mEq/l (22.0-26.0); Oxygen Content ABG 13.9 %vol (16.0-22.0); Oxygen Saturation ABG 94.5 % (95.0-100.0); Oxyhemoglobin 92.6 % THb (90.0-100.0); PCO2 ABG 37.6 mmHg (35.0-45.0); PO2 ABG 67.9 mmHg (80.0-100.0); PO2 FiO2 Ratio Arterial Blood 3.23 %; Total Hemoglobin 10.6 g/dL (12.0-18.0)
[2022-04-10 21:42] LABS: Device ROOM AIR; Modified Allen's Test Pass; Site Drawn RIGHT RADIAL
[2022-04-10 21:49] LABS: SARS-CoV-2 RNA PCR Negative
[2022-04-10 22:01] LABS: NT Pro B Type Natriuretic Pept 2670 pg/mL (5-100)
--- NOTE | 2022-04-10 22:02 | PM.IMHP ---
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 in emergency room patient was found to have low blood pressure which responded to bolus of NS. preliminary workup was significant for urinalysis with numerous WBCs present BUN 32 creatinine 1.1 a chest x-ray was clear. Patient has been admitted for further evaluation management treatment. Review of Systems Review of Systems: ROS unobtainable: Yes unobtainable due to mental status PMFSH Family History Family History (Updated 04/11/22 @ 00:02 by Corazon Dodd RN) Mother Cerebrovascular accident Hypertension Father Stomach cancer Sibling Parkinsons Social History Social History Smoking status: Never smoker Second hand tobacco smoke exposure: No Alcohol intake: never Substance use: never Substance use type: painkillers Spiritual care concerns: No Meds Home Medications and Allergies Home Medications Medication Instructions Recorded Confirmed Type amlodipine 5 mg tablet 5 mg PO DAILY hypertension 11/30/21 04/11/22 History apixaban 5 mg tablet (Eliquis) 5 mg PO BID anticoagulation 11/30/21 04/11/22 History atorvastatin 40 mg tablet 40 mg PO DAILY hyperlipidemia 11/30/21 04/11/22 History fluticasone 250 mcg-salmeterol 50 1 inh inhalation BID COPD 11/30/21 04/11/22 History mcg/dose blistr powdr for inhalation (Advair Diskus) furosemide 80 mg tablet 80 mg PO BID CAD 11/30/21 04/11/22 History lisinopril 5 mg tablet 5 mg PO DAILY hypertension 11/30/21 04/11/22 History loperamide 2 mg PO PRN PRN Diarrhea 11/30/21 04/11/22 History metoprolol tartrate 50 mg tablet 50 mg PO BID hypertension 11/30/21 04/11/22 History pantoprazole 40 mg tablet,delayed 40 mg PO DAILY GERD 11/30/21 04/11/22 History release sertraline 50 mg tablet 50 mg PO DAILY anxiety 11/30/21 04/11/22 History lorazepam 0.5 mg tablet 0.5 mg PO TID PRN Anxiety #90 tabs 01/19/22 04/11/22 Rx hydrocodone 5 mg-acetaminophen 325 1 tablet PO Q8H PRN Pain #60 tabs 03/31/22 04/11/22 Rx mg tablet Daily Multivitamin-Minerals 1 tablet PO DAILY 04/11/22 04/11/22 History calcium carbonate 500 mg calcium 500 mg PO Q6H PRN Gastric Reflux 04/11/22 04/11/22 History (1,250 mg) chewable tablet cetirizine 10 mg tablet (Zyrtec) 10 mg PO DAILY 04/11/22 04/11/22 History fluticasone propionate 50 1 spray intranasal DAILY 04/11/22 04/11/22 History mcg/actuation nasal spray,suspension (Allergy Relief (fluticasone)) gabapentin 100 mg capsule 100 mg PO TID 04/11/22 04/11/22 History melatonin 3 mg tablet 3 mg PO HS PRN Insomnia 04/11/22 04/11/22 History montelukast 10 mg tablet 10 mg PO DAILY 04/11/22 04/11/22 History (Singulair) polyethylene glycol 400 0.25 % eye 1 drp ophthalmic (eye) DAILY 04/11/22 04/11/22 History drops scopolamine base 1 mg over 3 days 1 patch transdermal Q3D 04/11/22 04/11/22 History transdermal patch sennosides 8.6 mg-docusate sodium 1 tablet PO DAILY 04/11/22 04/11/22 History 50 mg tablet (Senna with Docusate Sodium) Allergies Allergy/AdvReac Type Severity Reaction Status Date / Time clonidine Allergy Mild Unknown Verified 11/30/21 23:32 codeine Allergy Unknown Verified 11/30/21 23:32 diphenhydramine Allergy Unknown Verified 11/30/21 23:32 Iodinated Contrast Media Allergy Unkn
[2022-04-10 22:19] LABS: Troponin I < 0.012 ng/mL (0.000-0.034)
[2022-04-10] MEDS: SODIUM CHLORIDE 0.9% IV 1,000 ML 60 ML IV CONT (23:12)
--- NOTE | 2022-04-10 23:50 | ADMGEN ---
This patient, Edwina Elaine, was admitted to [address] [place] [address] Room 307-01. Patient/family oriented to hospital policies and general routines including ID bracelet, bed and alarms, visiting hours, pain management, procedures, bathroom and other care routines, personal items, smoking policy, room service/diet, and visiting hours. Information on how to activate the Rapid Response Team has been discussed. Patient/Family are encouraged to report perceived risks to care and to ask questions if they do not understand what they are told or what they should do.
[2022-04-11] VITALS (7 sets, daily range): BP systolic 108–129; BP diastolic 59–81; PULSE 83–104; RESP 16–18; TEMP 36.3–36.9; O2SAT 93–97
[2022-04-11 07:43] LABS: Anion Gap 13 mmol/L (8-16); Blood Urea Nitrogen 25 mg/dL (7-17); Calcium 8.8 mg/dL (8.4-10.2); Carbon Dioxide 24 mmol/L (22-30); Chloride 99 mmol/L (98-107); Estimated CRCL calculation 48 ml/min; Estimated Glomerular Filt Rate > 60; Glucose 129 mg/dL (65-110); Potassium 3.1 mmol/L (3.4-5.0); Sodium 136 mmol/L (137-145)
--- NOTE | 2022-04-11 07:48 | PC.NURSE ---
I contacted Linda SAWANT regarding pt's scopalamine patch to get clarification as to its administration. Per pt's nurse the patch is for 72 hours and to be changed every 3 days with the last administration being behind the left ear on 04/09/22 @ [id number]
[2022-04-11] MEDS: FLUTICASONE/SALMETEROL 115-21 MCG INHALER 1 PUFF 2 PUFF INHALATION ×2 (08:02→20:15)
[2022-04-11] MEDS: LORATADINE 10 MG TABLET PO (08:43)
[2022-04-11] MEDS: GABAPENTIN 100 MG CAPSULE PO ×3 (08:43→16:32)
[2022-04-11] MEDS: MONTELUKAST SODIUM 10 MG TABLET PO (08:43)
[2022-04-11] MEDS: FLUTICASONE PROPIONATE 0.05% NA SPR 16 GM BTL (*BKC) 1 SPRAY NASAL (08:43)
[2022-04-11] MEDS: ATORVASTATIN 40 MG TABLET PO (08:44)
[2022-04-11] MEDS: THERAPEUTIC MULTIVITAMINS/MINERALS TAB (*BKC) 1 TABLET PO (08:44)
[2022-04-11] MEDS: METOPROLOL TARTRATE 50 MG TAB PO ×2 (08:44→21:29)
[2022-04-11] MEDS: APIXABAN 5 MG TABLET PO ×2 (08:44→21:29)
[2022-04-11] MEDS: amLODIPine BESYLATE 5 MG TABLET PO (08:44)
[2022-04-11] MEDS: SENNA/DOCUSATE SODIUM TABLET 1 TAB PO (08:44)
[2022-04-11] MEDS: PANTOPRAZOLE 40 MG TABLET PO (08:44)
[2022-04-11] MEDS: SERTRALINE HCL 50 MG TABLET PO (08:44)
[2022-04-11] MEDS: ARTIFICIAL TEARS OPHTH SOLN 15 ML BOTTLE 1 DROP EACH EYE (08:46)
[2022-04-11] MEDS: POTASSIUM CHLORIDE 20 MEQ PACKET (FOR LIQUID) 40 MEQ PO (09:34)
--- NOTE | 2022-04-11 10:23 | PC.NURSE ---
pt was able to tell me her full name and date of . pt did not know where she was, why she was here, or the year, month, or day. Pt has no memory of the ambulance or ER and thought she was still at [facility].
[2022-04-11] MEDS: LORazepam (*CRX) 0.5 MG TABLET PO (12:06)
[2022-04-11] MEDS: SODIUM CHLORIDE 0.9% IV 1,000 ML 60 ML IV CONT (12:09)
[2022-04-12] MEDS: SODIUM CHLORIDE 0.9% IV 1,000 ML 60 ML IV CONT (05:26)
[2022-04-12] MEDS: SCOPOLAMINE 1.5 MG PATCH TRANSDERM (05:28)
[2022-04-12 06:00] VITALS: BP 140/77; PULSE 102; RESP 15; TEMP 36.2; O2SAT 95
[2022-04-12 08:08] VITALS: O2SAT 94
[2022-04-12] MEDS: FLUTICASONE/SALMETEROL 115-21 MCG INHALER 1 PUFF 2 PUFF INHALATION (08:08)
[2022-04-12] MEDS: GABAPENTIN 100 MG CAPSULE PO ×3 (08:21→17:07)
[2022-04-12] MEDS: amLODIPine BESYLATE 5 MG TABLET PO (08:21)
[2022-04-12] MEDS: THERAPEUTIC MULTIVITAMINS/MINERALS TAB (*BKC) 1 TABLET PO (08:21)
[2022-04-12] MEDS: SERTRALINE HCL 50 MG TABLET PO (08:21)
[2022-04-12] MEDS: PANTOPRAZOLE 40 MG TABLET PO (08:21)
[2022-04-12] MEDS: LORazepam (*CRX) 0.5 MG TABLET PO (08:21)
[2022-04-12] MEDS: SENNA/DOCUSATE SODIUM TABLET 1 TAB PO (08:21)
[2022-04-12] MEDS: HYDROcodone/acetaminophen (*CRX) 5-325 MG TABLET 1 TAB PO (08:21)
[2022-04-12 08:22] VITALS: PULSE 99
[2022-04-12] MEDS: ATORVASTATIN 40 MG TABLET PO (08:22)
[2022-04-12] MEDS: METOPROLOL TARTRATE 50 MG TAB PO (08:22)
[2022-04-12] MEDS: APIXABAN 5 MG TABLET PO (08:22)
[2022-04-12] MEDS: MONTELUKAST SODIUM 10 MG TABLET PO (08:22)
[2022-04-12] MEDS: LORATADINE 10 MG TABLET PO (08:23)
--- NOTE | 2022-04-12 09:16 | PM.IMPN ---
Progress Note: A&P Assessment and Plan (1) Urinary tract infection: Code(s): N39.0 - Urinary tract infection, site not specified Status: Acute (2) Weakness: Code(s): R53.1 - Weakness Status: Acute (3) KIMBERLEY (acute kidney injury): Code(s): N17.9 - Acute kidney failure, unspecified Status: Acute (4) Atrial fibrillation: Qualifiers: Atrial fibrillation type: unspecified Qualified Code(s): I48.91 - Unspecified atrial fibrillation Code(s): I48.91 - Unspecified atrial fibrillation Status: Acute (5) COPD (chronic obstructive pulmonary disease): Qualifiers: COPD type: unspecified COPD Qualified Code(s): J44.9 - Chronic obstructive pulmonary disease, unspecified Code(s): J44.9 - Chronic obstructive pulmonary disease, unspecified Status: Chronic (6) GERD (gastroesophageal reflux disease): Qualifiers: Esophagitis presence: esophagitis presence not specified Qualified Code(s): K21.9 - Gastro-esophageal reflux disease without esophagitis Code(s): K21.9 - Gastro-esophageal reflux disease without esophagitis Status: Chronic (7) CAD (coronary artery disease): Qualifiers: Associated angina: without angina Coronary Disease-Associated Artery/Lesion type: unspecified vessel or lesion type [place] vs. transplanted heart: [place] heart Qualified Code(s): I25.10 - Atherosclerotic heart disease of [place] coronary artery without angina pectoris Code(s): I25.10 - Atherosclerotic heart disease of [place] coronary artery without angina pectoris Status: Chronic Plan 04/10/22 ?admit to regular medical floor ?patient was started on ceftriaxone ?cultures in progress ?likely secondary to acute illness ?patient is a [employer] lift ?likely to be pre renal azotemia ?gentle hydration ?holding Lasix ?holding lisinopril ?rate controlled ?anticoagulated ?continue home meds ?stable ?PPI as needed ?continue home meds ?chest pain-free 04/11/22 doing ok no overnight events BP improved cont Rocephin 40mEq KCL KIMBERLEY resolved supportive care am labs Subjective Date/time seen: 04/11/22 09:16 says she feels mixed up oriented x 3 reassured this is from the UTI Review of Systems Review of Systems: All systems reviewed & are unremarkable except as noted in HPI and below Exam Narrative: GEN: NAD, AAOx3, cooperative HEENT: NCAT, MMM, EOMI Neck: no JVD Heart: S1S2 RRR Lungs: CTA B/l Abd: soft, NT, ND, bowel sounds normoactive Ext: moves all, no cyanosis, no clubbing, no edema Neuro: slow to respond AAOx3, moves all extremities equally Psych: mood and affect congruent Objective Data Vital Signs Vital Signs: Vital Signs - 24 hr 04/11/22 14:00 04/11/22 20:20 04/11/22 22:00 Temperature 98.2 F 98.5 F Pulse Rate 87 104 H Respiratory Rate 16 16 Blood Pressure 116/62 108/59 L Pulse Oximetry 96 93 94 Oxygen Delivery Room Air 04/12/22 06:00 04/12/22 08:08 04/12/22 08:22 Temperature 97.2 F L Pulse Rate 102 H 99 Respiratory Rate 15 Blood Pressure 140/77 Pulse Oximetry 95 94 Oxygen Delivery Room Air Intake/Output Intake/Output: Intake & Output 04/09/22 04/10/22 04/11/22 04/12/22 23:59 23:59 23:59 23:59 Intake Total 1050 1370 1250 Output Total 130 Balance 920 1370 1250 Meds/Results Medications: Active Medications Generic Name Dose Route Start Last Admin Trade Name Freq PRN Reason Stop Dose Admin Acetaminophen 650 mg 04/10/22 22:01 Acetaminophen 325 Mg Tablet PO Q4H PRN Mild Pain (1-3) or Fever Hydrocodone Bitart/Acetaminophen 1 tab 04/11/22 03:52 04/12/22 08:21 Hydrocodone/Acetaminophen (*Crx) 5-325 Mg Tablet PO 1 tab Q8H PRN Administration Pain Rated 4-6 Amlodipine Besylate 5 mg 04/11/22 09:00 04/12/22 08:21 Amlodipine Besylate 5 Mg Tablet PO 5 mg DAILY CONCHIS Administration Apixaban 5 mg 04/11/22 09:00
--- NOTE | 2022-04-12 09:25 | PM.IMPN ---
Progress Note: A&P Assessment and Plan (1) Urinary tract infection: Code(s): N39.0 - Urinary tract infection, site not specified Status: Acute (2) Weakness: Code(s): R53.1 - Weakness Status: Acute (3) KIMBERLEY (acute kidney injury): Code(s): N17.9 - Acute kidney failure, unspecified Status: Acute (4) Atrial fibrillation: Qualifiers: Atrial fibrillation type: unspecified Qualified Code(s): I48.91 - Unspecified atrial fibrillation Code(s): I48.91 - Unspecified atrial fibrillation Status: Acute (5) COPD (chronic obstructive pulmonary disease): Qualifiers: COPD type: unspecified COPD Qualified Code(s): J44.9 - Chronic obstructive pulmonary disease, unspecified Code(s): J44.9 - Chronic obstructive pulmonary disease, unspecified Status: Chronic (6) GERD (gastroesophageal reflux disease): Qualifiers: Esophagitis presence: esophagitis presence not specified Qualified Code(s): K21.9 - Gastro-esophageal reflux disease without esophagitis Code(s): K21.9 - Gastro-esophageal reflux disease without esophagitis Status: Chronic (7) CAD (coronary artery disease): Qualifiers: Coronary Disease-Associated Artery/Lesion type: unspecified vessel or lesion type [place] vs. transplanted heart: [place] heart Associated angina: without angina Qualified Code(s): I25.10 - Atherosclerotic heart disease of [place] coronary artery without angina pectoris Code(s): I25.10 - Atherosclerotic heart disease of [place] coronary artery without angina pectoris Status: Chronic Plan 04/10/22 ?admit to regular medical floor ?patient was started on ceftriaxone ?cultures in progress ?likely secondary to acute illness ?patient is a [employer] lift ?likely to be pre renal azotemia ?gentle hydration ?holding Lasix ?holding lisinopril ?rate controlled ?anticoagulated ?continue home meds ?stable ?PPI as needed ?continue home meds ?chest pain-free 04/11/22 doing ok no overnight events BP improved cont Rocephin 40mEq KCL KIMBERLEY resolved supportive care am labs 04/12/22 cont Rocephin OAC w Eliquis home med stable and improving dc planning back to facility when arranged Subjective Date/time seen: 04/12/22 09:25 I still feel mixed up Exam Narrative: GEN: NAD, AAOx3, cooperative HEENT: NCAT, MMM, EOMI Neck: no JVD Heart: IRR Lungs: CTA B/l Abd: soft, NT, ND, bowel sounds normoactive Ext: moves all, no cyanosis, no clubbing, no edema Neuro: slow to respond AAOx3, moves all extremities equally Psych: mood and affect congruent Objective Data Vital Signs Vital Signs: Vital Signs - 24 hr 04/11/22 14:00 04/11/22 20:20 04/11/22 22:00 Temperature 98.2 F 98.5 F Pulse Rate 87 104 H Respiratory Rate 16 16 Blood Pressure 116/62 108/59 L Pulse Oximetry 96 93 94 Oxygen Delivery Room Air 04/12/22 06:00 04/12/22 08:08 04/12/22 08:22 Temperature 97.2 F L Pulse Rate 102 H 99 Respiratory Rate 15 Blood Pressure 140/77 Pulse Oximetry 95 94 Oxygen Delivery Room Air Intake/Output Intake/Output: Intake & Output 04/09/22 04/10/22 04/11/22 04/12/22 23:59 23:59 23:59 23:59 Intake Total 1050 1370 1490 Output Total 130 Balance 920 1370 1490 Meds/Results Medications: Active Medications Generic Name Dose Route Start Last Admin Trade Name Freq PRN Reason Stop Dose Admin Acetaminophen 650 mg 04/10/22 22:01 Acetaminophen 325 Mg Tablet PO Q4H PRN Mild Pain (1-3) or Fever Hydrocodone Bitart/Acetaminophen 1 tab 04/11/22 03:52 04/12/22 08:21 Hydrocodone/Acetaminophen (*Crx) 5-325 Mg Tablet PO 1 tab Q8H PRN Administration Pain Rated 4-6 Amlodipine Besylate 5 mg 04/11/22 09:00 04/12/22 08:21 Amlodipine Besylate 5 Mg Tablet PO 5 mg DAILY CONCHIS Administration Apixaban 5 mg 04/11/22 09:00 04/12/22 08:22 Apixaban 5 Mg Tablet PO 5 mg
[2022-04-12 10:12] VITALS: BMI 26.6
[2022-04-12 14:00] VITALS: BP 103/58; PULSE 94; RESP 15; TEMP 35.8; O2SAT 97
--- NOTE | 2022-04-12 17:10 | PM.DS ---
DS: Admitting Diagnosis Discharge Date 04/12/22 Admitting Diagnosis (1) Urinary tract infection: ?Code(s): N39.0 - Urinary tract infection, site not specified ?Status:?Acute (2) Weakness: ?Code(s): R53.1 - Weakness ?Status:?Acute (3) KIMBERLEY (acute kidney injury): ?Code(s): N17.9 - Acute kidney failure, unspecified ?Status:?Acute (4) Atrial fibrillation: ?Qualifiers: ?Atrial fibrillation type:?unspecified? Qualified Code(s):?I48.91 - Unspecified atrial fibrillation ?Code(s): I48.91 - Unspecified atrial fibrillation ?Status:?Acute (5) COPD (chronic obstructive pulmonary disease): ?Qualifiers: ?COPD type:?unspecified COPD? Qualified Code(s):?J44.9 - Chronic obstructive pulmonary disease, unspecified ?Code(s): J44.9 - Chronic obstructive pulmonary disease, unspecified ?Status:?Chronic (6) GERD (gastroesophageal reflux disease): ?Qualifiers: ?Esophagitis presence:?esophagitis presence not specified? Qualified Code(s):?K21.9 - Gastro-esophageal reflux disease without esophagitis ?Code(s): K21.9 - Gastro-esophageal reflux disease without esophagitis ?Status:?Chronic (7) CAD (coronary artery disease): ?Qualifiers: ?Associated angina:?without angina??Coronary Disease-Associated Artery/Lesion type:?unspecified vessel or lesion type??[place] vs. transplanted heart:?[place] heart? Qualified Code(s):?I25.10 - Atherosclerotic heart disease of [place] coronary artery without angina pectoris ?Code(s): I25.10 - Atherosclerotic heart disease of [place] coronary artery without angina pectoris ?Status:?Chronic DS: Discharge Diagnosis Discharge Diagnosis (1) Urinary tract infection: Code(s): N39.0 - Urinary tract infection, site not specified Status: Acute (2) Weakness: Code(s): R53.1 - Weakness Status: Acute (3) KIMBERLEY (acute kidney injury): Code(s): N17.9 - Acute kidney failure, unspecified Status: Acute (4) Atrial fibrillation: Qualifiers: Atrial fibrillation type: unspecified Qualified Code(s): I48.91 - Unspecified atrial fibrillation Code(s): I48.91 - Unspecified atrial fibrillation Status: Acute (5) COPD (chronic obstructive pulmonary disease): Qualifiers: COPD type: unspecified COPD Qualified Code(s): J44.9 - Chronic obstructive pulmonary disease, unspecified Code(s): J44.9 - Chronic obstructive pulmonary disease, unspecified Status: Chronic (6) GERD (gastroesophageal reflux disease): Qualifiers: Esophagitis presence: esophagitis presence not specified Qualified Code(s): K21.9 - Gastro-esophageal reflux disease without esophagitis Code(s): K21.9 - Gastro-esophageal reflux disease without esophagitis Status: Chronic (7) CAD (coronary artery disease): Qualifiers: Coronary Disease-Associated Artery/Lesion type: unspecified vessel or lesion type [place] vs. transplanted heart: [place] heart Associated angina: without angina Qualified Code(s): I25.10 - Atherosclerotic heart disease of [place] coronary artery without angina pectoris Code(s): I25.10 - Atherosclerotic heart disease of [place] coronary artery without angina pectoris Status: Chronic Plan 04/10/22 ?admit to regular medical floor ?patient was started on ceftriaxone ?cultures in progress ?likely secondary to acute illness ?patient is a [employer] lift ?likely to be pre renal azotemia ?gentle hydration ?holding Lasix ?holding lisinopril ?rate controlled ?anticoagulated ?continue home meds ?stable ?PPI as needed ?continue home meds ?chest pain-free 04/11/22 doing ok no overnight events BP improved cont Rocephin 40mEq KCL KIMBERLEY resolved supportive care am labs 04/12/22 cont Rocephin OAC w Eliquis home med stable and improving dc planning back to facility when arranged DS: Summary Hospital Course Reason for hosp
== END 2022-04-12 18:38 | DRG 690 ==
LOC: ANHED 21:51 → ANH3MEDSUR 23:32
PROVIDERS: Emergency Medicine; Admitting Provider Internal Medicine; Emergency Provider Emergency Medicine; PCP Family Medicine; Visit Provider Hospitalist
DX: N39.0 Urinary tract infection, site not specified (principal); N17.9 Acute kidney failure, unspecified; R53.1 Weakness; I48.91 Unspecified atrial fibrillation; J44.9 Chronic obstructive pulmonary disease, unspecified; J30.2 Other seasonal allergic rhinitis; K21.9 Gastro-esophageal reflux disease without esophagitis; I25.10 Atherosclerotic heart disease of native coronary artery without angina pectoris; I11.0 Hypertensive heart disease with heart failure; I50.9 Heart failure, unspecified; E78.5 Hyperlipidemia, unspecified; E86.0 Dehydration; F41.9 Anxiety disorder, unspecified; E11.9 Type 2 diabetes mellitus without complications; Z20.822 Contact with and (suspected) exposure to COVID-19; Z66 Do not resuscitate; Z79.01 Long term (current) use of anticoagulants; Z79.899 Other long term (current) drug therapy; Z86.16 Personal history of COVID-19
CPT/HCPCS: 36415; 36600; 51701; 71045; 80048; 80053; 81001; 82805; 83605; 83880; 84484; 85025; 85610; 85730; 86140; 87040; 87077; 87086; 87186; 93005; 94640; 96360; 99285; A9270; C9803; J0696; J7030; U0003; U0005

== ENCOUNTER 2022-05-10 06:21 | Observation (INO) | payer MEDICARE, SELFPAY ==
[2022-05-10] VITALS (27 sets, daily range): BP systolic 91–159; BP diastolic 60–93; PULSE 89–150; RESP 11–33; TEMP 36.4–36.8; O2SAT 97–100; BMI 25.0
--- NOTE | ~2022-05-10 | CT_ITS ---
EXAMINATION: CT abdomen pelvis wo con DATE: 05/10/2022 07:22 INDICATION: Gastrointestinal hemorrhage. Abdominal pain. TECHNIQUE: Computed tomography (CT) of the abdomen and pelvis was performed without intravenous contr ast. Automated exposure control and iterative reconstruction technique were employed. The dose-length product was 789.51 mGy-cm. COMPARISON: None. FINDINGS: The visualized portions of the lung bases demonstrate mild atelectasis. Calcified lung nodu les and calcified hilar lymph nodes are consistent with old granulomatous disease. There are small pl eural effusions. Cardiomegaly is noted. There are coronary artery calcifications. Median sternotomy w ires are noted. There is a small sliding hiatal hernia. The liver and spleen are normal. The common d uct is dilated to 16 mm, likely not clinically significant given the normal liver function tests. The pancreas and adrenal glands are normal. The gallbladder is absent. There are cysts in the kidneys me asuring up to 18 mm on the left. There is no urolithiasis. Stool distends the rectum. There is wall t hickening of the rectum, consistent with stercoral colitis. There is a large volume of stool in the c olon. The appendix is not visualized. There are no pathologically enlarged lymph nodes. There is no f ree intraperitoneal fluid. There is severe lumbar spondylosis. There are changes of posterior fusion procedure at L4-L5. There is mild chronic anterior wedging of multiple vertebral bodies. IMPRESSION: 1. Stercoral colitis. 2. Small pleural effusions. 3. Small sliding hiatal hernia. Reviewed, dictated and finalized at location A.
--- NOTE | 2022-05-10 06:23 | ECG_ITS ---
Measurements Intervals [place] Rate: 139 P: [place]: 0 QRS: 123 QRSD: 125 T: 1 QT: 299 QTc: 455 Interpretive Statements ATRIAL FIBRILLATION WITH RAPID VENTRICULAR RESPONSE RIGHT VENTRICULAR HYPERTROPHY [SOME/ALL OF: PROMINENT R IN V1, LATE TRANSITION, RAD, RICH, SSS] ST DEPRESSION, CONSIDER SUBENDOCARDIAL INJURY [0.1+ mV ST DEPRESSION] RBBB COMPARED TO ECG 04/10/2022 21:12:12 THE RATE IS FASTER AND ISCHEMIC EKG CHANGES ARE NEW Electronically Signed On 05-11-2022 13:00:10 CDT by Xenia Garcia M.D.
[2022-05-10 06:45] LABS: Basophils Absolute Auto 0.1 K/mm3 (0.0-0.1); Basophils Percent Auto 0.7 % (0.2-1.2); Eosinophils Absolute Auto 0.3 K/mm3 (0-0.3); Eosinophils Percent Auto 4.8 % (0-4.4); Hematocrit 29.4 % (37.0-47.0); Hemoglobin 9.1 g/dL (12.0-15.0); Immature Granulocyte Absolute 0.04 K/mm3 (0.00-0.031); Immature Granulocyte Percent A 0.6 % (0-0.5); Lymphocytes Absolute Auto 1.64 K/mm3 (0.9-3.2); Mean Corpuscular Hemoglobin 25.8 pg (26-34); Mean Corpuscular Volume 83.3 fl (80-100); Mean Platelet Volume 8.9 fl (7.4-10.4); Monocytes Absolute Auto 0.6 K/mm3 (0.1-0.6); Monocytes Percent Auto 8.8 % (2.6-8.5); Neutrophils Absolute Auto 4.4 K/mm3 (1.3-6.7); Neutrophils Percent Auto 62.1 % (45.5-73.1); Platelet Count Result 448 k/mm3 (150-375); Red Blood Count 3.53 M/mm3 (4.2-5.4); Red Cell Distribution Width 17.2 % (11.5-14.5); White Blood Count 7.1 K/mm3 (4.5-10.0)
[2022-05-10 06:55] LABS: Magnesium 1.8 mg/dL (1.6-2.3)
[2022-05-10 06:56] LABS: INR 2.5; Prothrombin Time 26.2 Seconds (11.1-14.7)
[2022-05-10 06:57] LABS: Alanine Aminotransferase 18 U/L (6-35); Albumin Level 3.1 g/dL (3.5-5.1); Alkaline Phosphatase 81 U/L (38-126); Anion Gap 10 mmol/L (8-16); Aspartate Amino Transferase 32 U/L (14-36); Bilirubin,Total 0.5 mg/dL (0.2-1.3); Blood Urea Nitrogen 11 mg/dL (7-17); Calcium 8.5 mg/dL (8.4-10.2); Carbon Dioxide 22 mmol/L (22-30); Chloride 104 mmol/L (98-107); Estimated Glomerular Filt Rate > 60; Glucose 111 mg/dL (65-110); Partial Thromboplastin Time 66.9 SECONDS (22.3-36.8); Potassium 3.8 mmol/L (3.4-5.0); Sodium 136 mmol/L (137-145)
--- NOTE | 2022-05-10 07:07 | ED.GIBLEED ---
HPI - GI Bleed General Chief complaint: GI Bleed <Elmer Gordon MD - Last Filed: 05/10/22 07:21> Stated complaint: R bld <Elmer Gordon MD - Last Filed: 05/10/22 07:21> Time Seen by Provider: 05/10/22 06:30 <Elmer Gordon MD - Last Filed: 05/10/22 07:21> History of Present Illness HPI Narrative: This is an 86-year-old female with past medical history of A. fib on Eliquis, [facility]. [facility] from [facility] was during morning evaluation bright red bleeding with clots was noted in the patient's diaper. Patient was not aware of the bleeding. EMS reports patient was tachycardic to the 130s with irregular rhythm consistent with her A. fib. Systolic pressures reported in the 110s. The patient presents with DO NOT RESUSCITATE and Comfort care paperwork signed as of December 2021 <Elmer Gordon MD - Last Filed: 05/10/22 07:21> Related Data Home medications: Home Medications Medication Instructions Recorded Confirmed apixaban 5 mg tablet (Eliquis) 5 mg PO BID anticoagulation 11/30/21 04/11/22 atorvastatin 40 mg tablet 40 mg PO DAILY hyperlipidemia 11/30/21 04/11/22 fluticasone 250 mcg-salmeterol 50 1 inh inhalation BID COPD 11/30/21 04/11/22 mcg/dose blistr powdr for inhalation (Advair Diskus) loperamide 2 mg PO PRN PRN Diarrhea 11/30/21 04/11/22 metoprolol tartrate 50 mg tablet 50 mg PO BID hypertension 11/30/21 04/11/22 pantoprazole 40 mg tablet,delayed 40 mg PO DAILY GERD 11/30/21 04/11/22 release sertraline 50 mg tablet 50 mg PO DAILY anxiety 11/30/21 04/11/22 Daily Multivitamin-Minerals 1 tablet PO DAILY 04/11/22 04/11/22 calcium carbonate 500 mg calcium 500 mg PO Q6H PRN Gastric Reflux 04/11/22 04/11/22 (1,250 mg) chewable tablet cetirizine 10 mg tablet (Zyrtec) 10 mg PO DAILY 04/11/22 04/11/22 fluticasone propionate 50 1 spray intranasal DAILY 04/11/22 04/11/22 mcg/actuation nasal spray,suspension (Allergy Relief (fluticasone)) gabapentin 100 mg capsule 100 mg PO TID 04/11/22 04/11/22 melatonin 3 mg tablet 3 mg PO HS PRN Insomnia 04/11/22 04/11/22 montelukast 10 mg tablet 10 mg PO DAILY 04/11/22 04/11/22 (Singulair) polyethylene glycol 400 0.25 % eye 1 drp ophthalmic (eye) DAILY 04/11/22 04/11/22 drops scopolamine base 1 mg over 3 days 1 patch transdermal Q3D 04/11/22 04/11/22 transdermal patch sennosides 8.6 mg-docusate sodium 1 tablet PO DAILY 04/11/22 04/11/22 50 mg tablet (Senna with Docusate Sodium) <Elmer Gordon MD - Last Filed: 05/10/22 07:21> Allergies/Adverse reactions: Allergies Allergy/AdvReac Type Severity Reaction Status Date / Time clonidine Allergy Mild Unknown Verified 11/30/21 23:32 codeine Allergy Unknown Verified 11/30/21 23:32 diphenhydramine Allergy Unknown Verified 11/30/21 23:32 Iodinated Contrast Media Allergy Unknown Verified 11/30/21 23:32 morphine Allergy Unknown Verified 11/30/21 23:32 oxycodone Allergy Unknown Verified 11/30/21 23:32 tramadol Allergy Unknown Verified 11/30/21 23:32 <Elmer Gordon MD - Last Filed: 05/10/22 07:21> Review of Systems Review of Systems: CONSTITUTIONAL: Denies fever, chills, or sweats. EYES: Blind Denies visual changes, redness, or discharge. ENT: Denies rhinorrhea, congestion, sore throat, or otalgia. CARDIOVASCULAR: Denies chest pain, palpitations, or edema. RESPIRATORY: Denies cough or dyspnea. GASTROINTESTINAL: Rectal bleeding, Denies abdominal pain, nausea, vomiting, or diarrhea. GENITOURINARY: Denies dysuria or hematuria. SKIN: Denies rash or itching. MUSCULOSKELETAL: Denies back pain, joint pain, or myalgia. NEUROLOGIC: Denies headache, numbness, dizziness, or weakness. PSYCHIATRIC: Denies anxiety or depression. <Elmer Gordon MD - Last Filed: 05/10/22 07:21> [facility] Past Medical History Medical History: Medical History (Updated 05/10/22 @ 07:20 by Elmer Gordon MD) Atrial
[2022-05-10] MEDS: SODIUM CHLORIDE 0.9% IV 1,000 ML 999 ML IV CONT (07:11)
[2022-05-10] MEDS: PANTOPRAZOLE SODIUM IV 40 MG VIAL 80 MG IV PUSH (07:27)
[2022-05-10 07:59] LABS: Lactic Acid Reflex 1.3 mmol/L (0.7-2.0)
--- NOTE | 2022-05-10 08:25 | PC.NURSE ---
Jessica in blood bank made aware I am unable to edit order, but Dr. Vázquez would only like 1 unit of PRBC.
--- NOTE | 2022-05-10 09:18 | PC.NURSE ---
Patient cleaned and new brief placed on patient
--- NOTE | 2022-05-10 09:44 | ADMGEN ---
This patient, Edwina Elaine, was admitted to IMU Room 211-01. Patient/family oriented to hospital policies and general routines including ID bracelet, bed and alarms, visiting hours, pain management, procedures, bathroom and other care routines, personal items, smoking policy, room service/diet, and visiting hours. Information on how to activate the Rapid Response Team has been discussed. Patient/Family are encouraged to report perceived risks to care and to ask questions if they do not understand what they are told or what they should do.
[2022-05-10] MEDS: SODIUM CHLORIDE 0.9% IV 250 ML 30 ML IV CONT (10:06)
[2022-05-10 13:03] LABS: Hematocrit 30.7 % (37.0-47.0); Hemoglobin 9.7 g/dL (12.0-15.0)
--- NOTE | 2022-05-10 14:24 | WPDGICN ---
Assessment and Plan Assessment and plan (1) Rectal bleeding: Code(s): K62.5 - Hemorrhage of anus and rectum Status: Acute Assessment and Plan: could be from stercoral colitis, perianal, etc reviewed ct scan patient and daughter prefer conservative treatment for now hold eliquis and monitor for more signs of bleeding (2) Stercoral colitis: Code(s): K52.89 - Other specified noninfective gastroenteritis and colitis Status: Acute Assessment and Plan: probably cause of rectal bleeding- noted large amount of stool distending rectum, will give enema to see if will help (3) Chronic anticoagulation: Code(s): Z79.01 - alf (current) use of anticoagulants Status: Acute Assessment and Plan: on hold (4) Acute GI bleeding: Code(s): K92.2 - Gastrointestinal hemorrhage, unspecified Status: Acute Assessment and Plan: continue to monitor no colonoscopy per family unless more bleeding (5) Atrial fibrillation with RVR: Code(s): I48.91 - Unspecified atrial fibrillation Status: Acute (6) Coronary artery disease: Code(s): I25.10 - Atherosclerotic heart disease of [place] coronary artery without angina pectoris Status: Acute GI Consult Note Consult date/time: 05/10/22 14:24 Reason for consult: rectal bleeding HPI: Edwina Elaine is a 86 year old female history of stroke, congestive heart failure, coronary artery disease, atrial fibrillation on eliquis, chronic anemia 10-11 who was brought from the [facility] with new onset of rectal bleeding. Daughter is also here, patient has been slightly confused since she completed treatment for uti about 2 weeks ago. Patient say that had colonoscopy but years ago, no nausea or fever. ER evaluation noted bright red blood after rectal exam. CT scan reviewed and showed stercoral colitis, small pleural effusions, small sliding hiatal hernia Review of Systems Review of Systems: CONSTITUTIONAL: Denies fever, chills, or sweats. EYES: Blind Denies visual changes, redness, or discharge. ENT: Denies rhinorrhea, congestion, sore throat, or otalgia. CARDIOVASCULAR: Denies chest pain, palpitations, or edema. RESPIRATORY: Denies cough or dyspnea. GASTROINTESTINAL: Rectal bleeding, Denies abdominal pain, nausea, vomiting, or diarrhea. GENITOURINARY: Denies dysuria or hematuria. SKIN: Denies rash or itching. MUSCULOSKELETAL: Denies back pain, joint pain, or myalgia. NEUROLOGIC: Denies headache, numbness, dizziness, or weakness. PSYCHIATRIC: Denies anxiety or depression. [facility] Past Medical History Medical History (Updated 05/10/22 @ 14:30 by Suresh Oquendo MD) Anxiety Atrial fibrillation Chronic anticoagulation Chronic obstructive pulmonary disease Chronic pain Congestive heart failure Coronary artery disease Hypertension Rectal bleeding Stercoral colitis Family History Family History (Updated 04/11/22 @ 00:02 by Corazon Dodd RN) Mother Cerebrovascular accident Hypertension Father Stomach cancer Sibling Parkinsons Social History Social History (Updated 05/10/22 @ 13:24 by Aimee Beauchamp PA-C) Social History: Surrogate medical decision maker: Janessa Marrero or Paty Kiranjerad, daughters. Code status: Do not resuscitate. Smoking status: Never smoker Second hand tobacco smoke exposure: No Alcohol intake: never Substance use: never Spiritual care concerns: No Meds Home Medications and Allergies Home Medications Medication Instructions Recorded Confirmed Type apixaban 5 mg tablet (Eliquis) 5 mg PO Q12H anticoagulation 11/30/21 05/10/22 History atorvastatin 40 mg tablet 40 mg PO HS hyperlipidemia 11/30/21 05/10/22 History loperamide 2 mg PO PRN PRN Diarrhea 11/30/21 05/10/22 History metoprolol tartrate 50 mg tablet 50 mg PO Q12H hypertension 11/30/21 05/10/22 History pantoprazole 40 mg tablet,delayed 40 mg PO DAILY GERD 11/30/21 05/10/22 History r
[2022-05-10] MEDS: polyethylene glycoL 3350 17 GM POWD.PACK PO (17:05)
--- NOTE | 2022-05-10 17:30 | PM.IMHP ---
H&P: HPI History of Present Illness Date/Time: 05/10/22 17:30 Chief Complaint: Rectal bleeding. Narrative: This is a very pleasant 86-year-old female with history of stroke, congestive heart failure, coronary artery disease, atrial fibrillation on chronic anticoagulation, iron deficiency anemia, and several other comorbidities who presented to the emergency department via EMS for evaluation of rectal bleeding. After a bowel movement today she noticed that she had passed a large amount of bright red blood admixed with clots which prompted her to come in for evaluation. On arrival to the emergency department her blood pressure was stable but she was found to be in AFib with rapid ventricular response. Her hemoglobin and hematocrit have thus far remained stable and she has not had any significant episodes of rectal bleeding since admission. She did pass some bright red blood per rectum after rectal exam done in the emergency department, however. CT of the abdomen and pelvis showed stercoral colitis and she is being admitted in this setting for closer monitoring as she is on anticoagulants at home. At the time my evaluation she is resting comfortably and she has no complaints. She does mention having some discomfort in the rectum with her bowel movement earlier today but nothing at this time. She also denies lightheadedness, dizziness, chest pain, shortness a breath, nausea, and vomiting. Review of Systems Review of Systems: Twelve systems were reviewed. She had a urinary tract infection a couple weeks ago and completed a course of antibiotics with improvement in her symptoms. 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 She is essentially wheelchair-bound but says she can help stand and pivot. [facility] since her . She has no chest pain or sensations of racing heart. No shortness of breath. She denies nausea, vomiting, and diarrhea. No dysuria. Except as documented, all other systems were reviewed and are negative. [facility] Past Medical History Medical History (Updated 05/10/22 @ 22:26 by Aimee Beauchamp PA-C) Anxiety Aortic stenosis Atrial fibrillation Cerebral hemorrhage Chronic anticoagulation Chronic obstructive pulmonary disease Chronic pain Congestive heart failure Coronary artery disease Hypertension Macular degeneration Surgical History Surgical History (Updated 05/10/22 @ 22:26 by Aimee Beauchamp PA-C) History of appendectomy History of basal cell carcinoma excision History of cardiac catheterization History of cholecystectomy History of coronary artery bypass graft History of heart artery stent History of hysterectomy History of spinal surgery History of tonsillectomy Family History Family History Mother Cerebrovascular accident Hypertension Father Stomach cancer Sibling Parkinsons Social History Social History (Updated 05/10/22 @ 22:27 by Aimee Beauchamp PA-C) Social History: Surrogate medical decision maker: Janessa Marrero or Paty Mfcarlane, daughters. Code status: Do not resuscitate. Smoking status: Never smoker Second hand tobacco smoke exposure: No Alcohol intake: never Substance use: never Additional living arrangements comments: . Resident at his [facility] and [facility]. She has 3 daughters, her son several years ago from colon cancer. Spiritual care concerns: No Meds Home Medications and Allergies Home Medications Medication Instructions Recorded Confirmed Type apixaban 5 mg tablet (Eliquis) 5 mg PO Q12H anticoagulation 11/30/21 05/10/22 History atorvastatin 40 mg tablet 40 mg PO HS hyperlipidemia 11/30/21 05/10/22 History loperamide 2 mg PO PRN PRN Diarrhea 11/30/21 05/10/22 History metoprolol tartrate 50 mg tablet 50 mg PO Q12H hypertension 11/30/21 05/10/22 History pantoprazole 40 mg tablet,delayed 40 mg PO DAILY GERD 11/30
[2022-05-10 18:43] LABS: Hematocrit 29.5 % (37.0-47.0); Hemoglobin 9.4 g/dL (12.0-15.0)
[2022-05-10] MEDS: METOPROLOL TARTRATE 50 MG TAB PO (20:46)
[2022-05-10] MEDS: SCOPOLAMINE 1.5 MG PATCH TRANSDERM (20:46)
[2022-05-10] MEDS: HYDROcodone/acetaminophen (*CRX) 5-325 MG TABLET 1 TAB PO (20:47)
[2022-05-10] MEDS: GABAPENTIN 100 MG CAPSULE PO (20:47)
[2022-05-10] MEDS: SENNA/DOCUSATE SODIUM TABLET 1 TAB PO (20:47)
[2022-05-10] MEDS: MONTELUKAST SODIUM 10 MG TABLET PO (20:47)
[2022-05-10] MEDS: LORazepam (*CRX) 0.5 MG TABLET PO (20:47)
[2022-05-10] MEDS: ATORVASTATIN 40 MG TABLET PO (22:44)
[2022-05-11] VITALS (10 sets, daily range): BP systolic 133–147; BP diastolic 68–84; PULSE 77–87; RESP 12–20; TEMP 35.9–36.6; O2SAT 97–99
[2022-05-11 05:01] LABS: Basophils Percent Auto 0.5 % (0.2-1.2); Eosinophils Absolute Auto 0.3 K/mm3 (0-0.3); Eosinophils Percent Auto 5.1 % (0-4.4); Hemoglobin 9.1 g/dL (12.0-15.0); Immature Granulocyte Absolute 0.05 K/mm3 (0.00-0.031); Immature Granulocyte Percent A 0.8 % (0-0.5); Lymphocytes Absolute Auto 1.24 K/mm3 (0.9-3.2); Lymphocytes Percent Auto 19.1 % (18.3-44.2); Mean Corpuscular HGB Conc 31.4 g/dl (32-36); Mean Corpuscular Hemoglobin 26.6 pg (26-34); Mean Corpuscular Volume 84.8 fl (80-100); Mean Platelet Volume 8.4 fl (7.4-10.4); Monocytes Absolute Auto 0.6 K/mm3 (0.1-0.6); Monocytes Percent Auto 9.7 % (2.6-8.5); Neutrophils Absolute Auto 4.2 K/mm3 (1.3-6.7); Neutrophils Percent Auto 64.8 % (45.5-73.1); Platelet Count Result 312 k/mm3 (150-375); Red Blood Count 3.42 M/mm3 (4.2-5.4); Red Cell Distribution Width 16.8 % (11.5-14.5); White Blood Count 6.5 K/mm3 (4.5-10.0)
[2022-05-11 05:24] LABS: Alanine Aminotransferase 21 U/L (6-35); Alkaline Phosphatase 89 U/L (38-126); Anion Gap 6 mmol/L (8-16); Aspartate Amino Transferase 37 U/L (14-36); Bilirubin,Total 0.9 mg/dL (0.2-1.3); Blood Urea Nitrogen 9 mg/dL (7-17); Calcium 8.4 mg/dL (8.4-10.2); Carbon Dioxide 23 mmol/L (22-30); Chloride 106 mmol/L (98-107); Estimated CRCL calculation 66 ml/min; Estimated Glomerular Filt Rate > 60; Glucose 102 mg/dL (65-110); Magnesium 1.7 mg/dL (1.6-2.3); Potassium 3.5 mmol/L (3.4-5.0); Sodium 135 mmol/L (137-145)
[2022-05-11] MEDS: HYDROcodone/acetaminophen (*CRX) 5-325 MG TABLET 1 TAB PO ×3 (05:33→23:35)
[2022-05-11] MEDS: METOPROLOL TARTRATE 50 MG TAB PO ×2 (08:42→21:49)
[2022-05-11] MEDS: ARTIFICIAL TEARS OPHTH SOLN 15 ML BOTTLE 1 DROP EACH EYE (08:42)
[2022-05-11] MEDS: GABAPENTIN 100 MG CAPSULE PO ×3 (08:42→17:24)
[2022-05-11] MEDS: PANTOPRAZOLE 40 MG TABLET PO (08:42)
[2022-05-11] MEDS: FLUTICASONE PROPIONATE 0.05% NA SPR 16 GM BTL (*BKC) 1 SPRAY NASAL (08:42)
[2022-05-11] MEDS: THERAPEUTIC MULTIVITAMINS/MINERALS TAB (*BKC) 1 TABLET PO (08:42)
[2022-05-11] MEDS: LORazepam (*CRX) 0.5 MG TABLET PO ×3 (08:42→17:24)
[2022-05-11] MEDS: LORATADINE 10 MG TABLET PO (08:42)
[2022-05-11] MEDS: SERTRALINE HCL 50 MG TABLET PO (08:42)
[2022-05-11] MEDS: polyethylene glycoL 3350 17 GM POWD.PACK PO ×2 (08:44→17:24)
--- NOTE | 2022-05-11 10:50 | WPDGIPROGNO ---
Progress Note: A&P Assessment and Plan (1) Rectal bleeding: Code(s): K62.5 - Hemorrhage of anus and rectum Status: Acute Assessment and Plan: apparently no more bleeding and h/h stable at 9 (2) Stercoral colitis: Code(s): K52.89 - Other specified noninfective gastroenteritis and colitis Status: Acute Assessment and Plan: conservative treatment, monitor, denies pain advance diet continue with miralax (3) Chronic anticoagulation: Code(s): Z79.01 - [facility] (current) use of anticoagulants Status: Acute Assessment and Plan: on hold (4) Chronic obstructive pulmonary disease: Code(s): J44.9 - Chronic obstructive pulmonary disease, unspecified Status: Acute (5) Chronic anemia: Code(s): D64.9 - Anemia, unspecified Status: Acute Assessment and Plan: monitor h/h Subjective Date/time seen: 05/11/22 10:50 Interval history: patient says that had BM earlier today and not obvious bleeding, tolerating liquid diet Review of Systems Review of Systems: All systems reviewed & are unremarkable except as noted in HPI and below Exam Narrative: GENERAL: Well-appearing, well-nourished, and in no acute distress. HEAD: Normocephalic, atraumatic. EYES: PERRLA and EOMI. conjunctiva pale ENT: Mucous membranes moist. NECK: Supple. No adenopathy or masses. CHEST: Clear to auscultation. No respiratory distress. No wheezes rales or rhonchi HEART: Irregularly irregular rhythm. No murmur heard. Normal peripheral pulses. ABDOMEN: Soft,no rebound, nondistended, normal active bowel sounds. EXTREMITIES: Normal range of motion. No edema. SKIN: Warm, dry, no rash. NEURO: No focal deficits. Alert and oriented x3. PSYCH: Normal mood and affect. Objective Data Vital Signs Vital Signs: Vital Signs - 24 hr 05/10/22 11:06 05/10/22 12:00 05/10/22 12:00 Temperature 98.1 F Pulse Rate 101 H 100 Respiratory Rate 16 Blood Pressure 128/67 Pulse Oximetry 98 Oxygen Delivery Room Air 05/10/22 14:00 05/10/22 16:00 05/10/22 16:00 Temperature Pulse Rate 123 H 100 Respiratory Rate Blood Pressure Pulse Oximetry Oxygen Delivery Room Air 05/10/22 16:00 05/10/22 18:00 05/10/22 20:46 Temperature 97.8 F Pulse Rate 98 109 H 99 Respiratory Rate 20 Blood Pressure 159/93 H Pulse Oximetry 99 Oxygen Delivery 05/10/22 20:00 05/10/22 20:00 05/10/22 20:00 Temperature 97.6 F Pulse Rate 89 97 108 H Respiratory Rate 20 Blood Pressure 150/82 H Pulse Oximetry 98 Oxygen Delivery Room Air 05/10/22 22:00 05/11/22 00:00 05/11/22 00:00 Temperature 97.6 F Pulse Rate 97 87 83 Respiratory Rate 18 Blood Pressure 136/84 Pulse Oximetry 98 Oxygen Delivery Room Air 05/11/22 00:00 05/11/22 02:00 05/11/22 03:08 Temperature Pulse Rate 80 87 78 Respiratory Rate Blood Pressure Pulse Oximetry Oxygen Delivery Room Air 05/11/22 04:00 05/11/22 04:00 05/11/22 06:00 Temperature 97.8 F Pulse Rate 85 79 78 Respiratory Rate 18 Blood Pressure 140/81 Pulse Oximetry 97 Oxygen Delivery 05/11/22 07:51 05/11/22 08:42 05/11/22 08:00 Temperature 97.4 F L Pulse Rate 77 81 83 Respiratory Rate 16 Blood Pressure 147/73 H Pulse Oximetry 99 Oxygen Delivery Intake/Output Intake/Output: Intake & Output 05/08/22 05/09/22 05/10/22 05/11/22 23:59 23:59 23:59 23:59 Intake Total 1840 100 Output Total 50 Balance 1840 50 Meds/Results Medications: Active Medications Generic Name Dose Route Start Last Admin Trade Name Freq PRN Reason Stop Dose Admin Acetaminophen 650 mg 05/10/22 18:54 Acetaminophen 325 Mg Tablet PO Q6H PRN PAIN RATED 1-3 Hydrocodone Bitart/Acetaminophen 1 tab 05/10/22 22:00 05/11/22 05:33 Hydrocodone/Acetaminophen (*Crx) 5-325 Mg Tablet PO 1 tab Q8HR CONCHIS Administration Artificial Tears 1 drop 05/11
--- NOTE | 2022-05-11 11:07 | PM.IMPN ---
Progress Note: A&P Assessment and Plan (1) Rectal bleeding: Code(s): K62.5 - Hemorrhage of anus and rectum Status: Acute Assessment and Plan: monitor, monitor H&H (2) Stercoral colitis: Code(s): K52.89 - Other specified noninfective gastroenteritis and colitis Status: Acute Assessment and Plan: continue laxatives and yesterday, patient did have BM. IV antibiotics (3) Coronary artery disease: Code(s): I25.10 - Atherosclerotic heart disease of [place] coronary artery without angina pectoris Status: Acute Assessment and Plan: Chronic and stable (4) Congestive heart failure: Code(s): I50.9 - Heart failure, unspecified Status: Acute Assessment and Plan: appears euvolemic (5) Chronic anticoagulation: Code(s): Z79.01 - longterm (current) use of anticoagulants Status: Acute Assessment and Plan: on hold for now (6) Chronic obstructive pulmonary disease: Code(s): J44.9 - Chronic obstructive pulmonary disease, unspecified Status: Acute Assessment and Plan: stable Plan likely discharge tomorrow if hemoglobin remains stable. Subjective Date/time seen: 05/11/22 11:07 no new complaints Exam Narrative: General: Well-developed elderly female sitting up in bed in no acute distress. Weight: 72.5 kilograms. BMI: 25.0. HEENT: She keeps her eyes shut a lot during the interview, reports that she can not see very well anyway due to macular degeneration. Oral mucosa moist. Neck: Supple. Respiratory: Lungs are clear to auscultation bilaterally. Cardiovascular: Irregularly irregular rate and rhythm. Systolic murmur at the upper sternal border. Gastrointestinal: Abdomen is soft and nondistended with positive bowel sounds. She is tender to deeper palpation the left lower quadrant. No guarding or rebound tenderness. Skin: Warm and dry. Generalized pallor. Extremities: No cyanosis or clubbing. Trace lower extremity edema bilaterally. Radial and pedal pulses intact. Neurological: Alert and oriented x4. Cranial nerves 2-12 are grossly intact. No gross focal deficits to casual conversation. Psychiatric: Pleasant and cooperative with normal mood and affect. Seems perhaps a bit forgetful but quite sharp. Objective Data Vital Signs Vital Signs: Vital Signs - 24 hr 05/10/22 12:00 05/10/22 12:00 05/10/22 14:00 Temperature Pulse Rate 100 123 H Respiratory Rate Blood Pressure Pulse Oximetry Oxygen Delivery Room Air 05/10/22 16:00 05/10/22 16:00 05/10/22 16:00 Temperature 97.8 F Pulse Rate 100 98 Respiratory Rate 20 Blood Pressure 159/93 H Pulse Oximetry 99 Oxygen Delivery Room Air 05/10/22 18:00 05/10/22 20:46 05/10/22 20:00 Temperature 97.6 F Pulse Rate 109 H 99 89 Respiratory Rate 20 Blood Pressure 150/82 H Pulse Oximetry 98 Oxygen Delivery 05/10/22 20:00 05/10/22 20:00 05/10/22 22:00 Temperature Pulse Rate 97 108 H 97 Respiratory Rate Blood Pressure Pulse Oximetry Oxygen Delivery Room Air 05/11/22 00:00 05/11/22 00:00 05/11/22 00:00 Temperature 97.6 F Pulse Rate 87 83 80 Respiratory Rate 18 Blood Pressure 136/84 Pulse Oximetry 98 Oxygen Delivery Room Air 05/11/22 02:00 05/11/22 03:08 05/11/22 04:00 Temperature 97.8 F Pulse Rate 87 78 85 Respiratory Rate 18 Blood Pressure 140/81 Pulse Oximetry 97 Oxygen Delivery Room Air 05/11/22 04:00 05/11/22 06:00 05/11/22 07:51 Temperature 97.4 F L Pulse Rate 79 78 77 Respiratory Rate 16 Blood Pressure 147/73 H Pulse Oximetry 99 Oxygen Delivery 05/11/22 08:42 05/11/22 08:00 Temperature Pulse Rate 81 83 Respiratory Rate Blood Pressure Pulse Oximetry Oxygen Delivery Intake/Output Intake/Output: Intake & Output 05/08/22 05/09/22 05/10/22 05/11/22 23:59 23:59 23:59 23:59 Intake Total 1840 100 Output Total 5
[2022-05-11] MEDS: ACETAMINOPHEN 325 MG TABLET 650 MG PO (17:27)
--- NOTE | 2022-05-11 19:56 | PC.NURSE ---
This patient, Edwina Elaine, was transferred to [[facility]] on 05/11/22 at 1947. Personal belongings sent with patient. Report given to [CHERELLE Garcia]. Appropriate documentation sent with patient.
[2022-05-11] MEDS: MONTELUKAST SODIUM 10 MG TABLET PO (21:50)
[2022-05-11] MEDS: SENNA/DOCUSATE SODIUM TABLET 1 TAB PO (21:51)
[2022-05-11] MEDS: ATORVASTATIN 40 MG TABLET PO (21:51)
[2022-05-12] VITALS: BP 141/75; PULSE 114; RESP 18; TEMP 36.1; O2SAT 99
[2022-05-12 04:51] VITALS: BP 155/68; PULSE 94; RESP 18; TEMP 36.1; O2SAT 98
[2022-05-12] MEDS: HYDROcodone/acetaminophen (*CRX) 5-325 MG TABLET 1 TAB PO ×2 (05:09→14:34)
--- NOTE | 2022-05-12 07:03 | ECG_ITS ---
Measurements Intervals [place] Rate: 88 P: ID: 0 QRS: 69 QRSD: 137 T: -8 QT: 381 QTc: 463 Interpretive Statements ATRIAL FIBRILLATION RIGHT BUNDLE BRANCH BLOCK [120+ ms QRS DURATION, UPRIGHT V1, 40+ ms S IN I/aVL/V4/V5/V6] COMPARED TO ECG 05/10/2022 06:32:34 NO SIGNIFICANT CHANGES Electronically Signed On 05-12-2022 15:20:51 CDT by Desire Malcolm M.D.
[2022-05-12 07:44] LABS: Basophils Percent Auto 0.4 % (0.2-1.2); Eosinophils Absolute Auto 0.3 K/mm3 (0-0.3); Eosinophils Percent Auto 3.8 % (0-4.4); Hematocrit 30.1 % (37.0-47.0); Hemoglobin 9.7 g/dL (12.0-15.0); Immature Granulocyte Absolute 0.05 K/mm3 (0.00-0.031); Immature Granulocyte Percent A 0.6 % (0-0.5); Lymphocytes Percent Auto 15.1 % (18.3-44.2); Mean Corpuscular HGB Conc 32.2 g/dl (32-36); Mean Corpuscular Hemoglobin 27.1 pg (26-34); Mean Corpuscular Volume 84.1 fl (80-100); Mean Platelet Volume 8.6 fl (7.4-10.4); Monocytes Absolute Auto 0.6 K/mm3 (0.1-0.6); Monocytes Percent Auto 7.8 % (2.6-8.5); Neutrophils Absolute Auto 5.8 K/mm3 (1.3-6.7); Neutrophils Percent Auto 72.3 % (45.5-73.1); Platelet Count Result 343 k/mm3 (150-375); Red Blood Count 3.58 M/mm3 (4.2-5.4); Red Cell Distribution Width 17.4 % (11.5-14.5)
[2022-05-12 07:50] LABS: Anion Gap 8 mmol/L (8-16); Blood Urea Nitrogen 7 mg/dL (7-17); Calcium 8.6 mg/dL (8.4-10.2); Carbon Dioxide 23 mmol/L (22-30); Chloride 105 mmol/L (98-107); Estimated CRCL calculation 66 ml/min; Estimated Glomerular Filt Rate > 60; Glucose 108 mg/dL (65-110); Magnesium 1.8 mg/dL (1.6-2.3); Potassium 3.6 mmol/L (3.4-5.0); Sodium 136 mmol/L (137-145)
[2022-05-12 08:42] VITALS: PULSE 77
[2022-05-12] MEDS: METOPROLOL TARTRATE 50 MG TAB PO (08:42)
[2022-05-12] MEDS: polyethylene glycoL 3350 17 GM POWD.PACK PO (08:42)
[2022-05-12] MEDS: GABAPENTIN 100 MG CAPSULE PO ×2 (08:42→12:06)
[2022-05-12] MEDS: ARTIFICIAL TEARS OPHTH SOLN 15 ML BOTTLE 1 DROP EACH EYE (08:42)
[2022-05-12] MEDS: THERAPEUTIC MULTIVITAMINS/MINERALS TAB (*BKC) 1 TABLET PO (08:42)
[2022-05-12] MEDS: FLUTICASONE PROPIONATE 0.05% NA SPR 16 GM BTL (*BKC) 1 SPRAY NASAL (08:42)
[2022-05-12] MEDS: SERTRALINE HCL 50 MG TABLET PO (08:43)
[2022-05-12] MEDS: LORATADINE 10 MG TABLET PO (08:43)
[2022-05-12] MEDS: PANTOPRAZOLE 40 MG TABLET PO (08:43)
[2022-05-12] MEDS: LORazepam (*CRX) 0.5 MG TABLET PO ×2 (08:45→12:06)
--- NOTE | 2022-05-12 13:58 | PM.DS ---
DS: Admitting Diagnosis Discharge Date 05/12/22 Admitting Diagnosis Rectal bleeding DS: Discharge Diagnosis Discharge Diagnosis (1) Rectal bleeding: Code(s): K62.5 - Hemorrhage of anus and rectum Status: Acute (2) Stercoral colitis: Code(s): K52.89 - Other specified noninfective gastroenteritis and colitis Status: Acute (3) Coronary artery disease: Code(s): I25.10 - Atherosclerotic heart disease of [place] coronary artery without angina pectoris Status: Acute (4) Congestive heart failure: Code(s): I50.9 - Heart failure, unspecified Status: Acute (5) Atrial fibrillation: Qualifiers: Atrial fibrillation type: unspecified Qualified Code(s): I48.91 - Unspecified atrial fibrillation Code(s): I48.91 - Unspecified atrial fibrillation Status: Acute (6) Chronic anticoagulation: Code(s): Z79.01 - joint terminal attack controller (current) use of anticoagulants Status: Acute (7) Chronic obstructive pulmonary disease: Code(s): J44.9 - Chronic obstructive pulmonary disease, unspecified Status: Acute DS: Summary Hospital Course Reason for hospitalization: 86yo female with CHF, AFib and CAD here for rectal bleeding. Please see H&P for details Hospital Course: Patient presents from the senior living for rectal bleeding. Was noted that she had bright red bleeding with clots in her diaper. She is on Eliquis. EKG on admission showed AFib with RVR rate of 139 and right ventricular hypertrophy with ST depression felt to be rate related. CT of the abdomen and pelvis showed stercoral colitis and small pleural effusions. White count was normal and remained normal. Hemoglobin is 9.1 on admission. INR was 2.5 on admission. Comprehensive metabolic panel was essentially normal. Eliquis was held. She had serial hemoglobin evaluations showing that the hemoglobin remains stable. GI was consulted but recommended conservative therapy. She was started on Zosyn for her colitis. GI felt okay to resume anticoagulation. Miralax started for her constipation. She overall did well did discharged back to the senior living on 05/12/2022. Status at Discharge Cognitive/behavioral status at discharge: stable Time Spent with Patient Time attestation: Total time spent providing and/or coordinating discharge services: 35 minutes Time spent: Greater than 30 minutes Exam Narrative: AF 97.0 155/68 77 18 98% ra Gen - NARD Chest - CTA bilaterally, nml RR CV -irregularly irregular. Murmur appreciated throughout the precordium. Abd - Soft, NT/ND, Positive BS Ext - No pedal edema Neuro - Alert and oriented x2 (not year or Tanika name). Psych - Nml mood and affect Skin - Warm and dry DS: Data Data Completed and Pending Labs on day of discharge: Labs from last 24 hours 05/12/22 05/12/22 07:31 07:31 WBC 8.0 RBC 3.58 L Hgb 9.7 L Hct 30.1 L MCV 84.1 MCH 27.1 MCHC 32.2 RDW 17.4 H Plt Count 343 MPV 8.6 Immature Gran % (Auto) 0.6 H Neut % (Auto) 72.3 Lymph % (Auto) 15.1 L [place] % (Auto) 7.8 Eos % (Auto) 3.8 Baso % (Auto) 0.4 Lymph # (Auto) 1.20 [place] # (Auto) 0.6 Eos # (Auto) 0.3 Baso # (Auto) 0.0 Abs Immat Gran (auto) 0.05 H Absolute Neuts (auto) 5.8 Absolute Nucleated RBC 0.0 Nucleated RBC % 0.0 Sodium 136 L Potassium 3.6 Chloride 105 Carbon Dioxide 23 Anion Gap 8 BUN 7 Creatinine 0.50 L Estim Creat Clear Calc 66 Estimated GFR > 60 Glucose 108 Calcium 8.6 Magnesium 1.8 Discharge Plan Discharge Attending physician on discharge: Jonathon Fernandez Consulting providers: Suresh Oquendo Discharging Clinician: Jonathon Fernandez Anticipated Discharge Date/Time: 05/12/22 14:07 Patient Disposition: [facility] Activity: as tolerated Diet: low fiber Discharge Instructions: Recommend low-fiber diet for 1 week then advanc
[2022-05-12 14:29] VITALS: BP 119/69; PULSE 55; RESP 24; TEMP 36.9; O2SAT 98
--- NOTE | 2022-05-12 16:11 | WPDGIPROGNO ---
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 Doing well Review of Systems Review of Systems: All systems reviewed & are unremarkable except as noted in HPI and below Exam Narrative: GENERAL: Well-appearing, well-nourished, and in no acute distress. HEAD: Normocephalic, atraumatic. EYES: PERRLA and EOMI. conjunctiva pale ENT: Mucous membranes moist. NECK: Supple. No adenopathy or masses. CHEST: Clear to auscultation. No respiratory distress. No wheezes rales or rhonchi HEART: Irregularly irregular rhythm. No murmur heard. Normal peripheral pulses. ABDOMEN: Soft,no rebound, nondistended, normal active bowel sounds. EXTREMITIES: Normal range of motion. No edema. SKIN: Warm, dry, no rash. NEURO: No focal deficits. Alert and oriented x3. PSYCH: Normal mood and affect. Objective Data Vital Signs Vital Signs: Vital Signs - 24 hr 05/11/22 20:11 05/12/22 00:00 05/12/22 04:51 Temperature 96.6 F L 97 F L 97 F L Pulse Rate 85 114 H 94 Respiratory Rate 20 18 18 Blood Pressure 137/68 141/75 H 155/68 H Pulse Oximetry 98 99 98 Oxygen Delivery 05/12/22 08:42 05/12/22 08:00 05/12/22 14:29 Temperature 98.4 F Pulse Rate 77 55 L Respiratory Rate 24 H Blood Pressure 119/69 Pulse Oximetry 98 Oxygen Delivery Room Air Intake/Output Intake/Output: Intake & Output 05/09/22 05/10/22 05/11/22 05/12/22 23:59 23:59 23:59 23:59 Intake Total 1840 740 700 Output Total 50 100 Balance 1840 690 600 Meds/Results Medications: Active Medications Generic Name Dose Route Start Last Admin Trade Name Freq PRN Reason Stop Dose Admin Acetaminophen 650 mg 05/10/22 18:54 05/11/22 17:27 Acetaminophen 325 Mg Tablet PO 650 mg Q6H PRN Administration PAIN RATED 1-3 Hydrocodone Bitart/Acetaminophen 1 tab 05/10/22 22:00 05/12/22 14:34 Hydrocodone/Acetaminophen (*Crx) 5-325 Mg Tablet PO 1 tab Q8HR CONCHIS Administration Artificial Tears 1 drop 05/11/22 09:00 05/12/22 08:42 Artificial Tears Ophth Soln 15 Ml Bottle EACH EYE 1 drop DAILY CONCHIS Administration Atorvastatin Calcium 40 mg 05/10/22 21:00 05/11/22 21:51 Atorvastatin 40 Mg Tablet PO 40 mg HS CONCHIS Administration Calcium Carbonate 500 mg 05/10/22 18:43 Calcium Carbonate (Tums) 500 Mg (200 Mg Elemental) PO Q6H PRN Gastric Reflux Fluticasone Propionate 1 spray 05/11/22 09:00 05/12/22 08:42 Fluticasone Propionate 0.05% Na Spr 16 Gm Btl (*Bkc) NASAL 1 spray DAILY CONCHIS Administration Gabapentin 100 mg 05/10/22 18:55 05/12/22 12:06 Gabapentin 100 Mg Capsule PO 100 mg TID CONCHIS Administration Piperacillin/Tazobactam/Dextrose 3.375 gm in 50 mls @ 100 mls/hr 05/10/22 18:00 05/12/22 12:40 Zosyn 3.375 Gm/D5w 50ml Pm IVPB Infused Q6H CONCHIS Infusion Loperamide HCl 2 mg 05/10/22 18:56 Loperamide Hcl 2 Mg Capsule PO PRN PRN Diarrhea Loratadine 1
[2022-05-12 16:40] LABS: EDCOVIDSCREEN Negative (Negative)
== END 2022-05-12 20:15 ==
LOC: ANHED 07:44 → ANH2MED 05-12 14:09 → ANHIMU 05-13 12:52
PROVIDERS: Internal Medicine; Physician Assistant; Preventive Medicine Aerospace Medicine; Admitting Provider Chiropractor; Emergency Provider Emergency Medicine; PCP Family Medicine; Visit Provider Internal Medicine Cardiovascular Disease
DX: K62.5 Hemorrhage of anus and rectum (principal); K52.89 Other specified noninfective gastroenteritis and colitis; I25.10 Atherosclerotic heart disease of native coronary artery without angina pectoris; Z95.1 Presence of aortocoronary bypass graft; Z95.5 Presence of coronary angioplasty implant and graft; I11.0 Hypertensive heart disease with heart failure; I50.9 Heart failure, unspecified; I48.91 Unspecified atrial fibrillation; Z79.01 Long term (current) use of anticoagulants; J44.9 Chronic obstructive pulmonary disease, unspecified; R00.0 Tachycardia, unspecified; Z66 Do not resuscitate; Z20.822 Contact with and (suspected) exposure to COVID-19; H54.7 Unspecified visual loss; H35.30 Unspecified macular degeneration; J90 Pleural effusion, not elsewhere classified; F41.9 Anxiety disorder, unspecified; D64.9 Anemia, unspecified; K44.9 Diaphragmatic hernia without obstruction or gangrene; G89.29 Other chronic pain; I45.10 Unspecified right bundle-branch block; R94.31 Abnormal electrocardiogram [ECG] [EKG]; Z86.73 Personal history of transient ischemic attack (TIA), and cerebral infarction without residual deficits; Z79.52 Long term (current) use of systemic steroids; Z79.891 Long term (current) use of opiate analgesic; Z79.899 Other long term (current) drug therapy; Z82.49 Family history of ischemic heart disease and other diseases of the circulatory system
CPT/HCPCS: 36415; 36430; 74176; 80048; 80053; 83605; 83735; 84443; 85014; 85018; 85025; 85610; 85730; 86850; 86900; 86901; 86920; 87426; 93005; 96361; 96365; 96366; 96375; 99285; A9270; C9113; C9803; G0378; J2543; J7030; J7050; P9016

== ENCOUNTER 2023-04-02 18:27 | Observation (INO) | payer MEDICARE, MEDICAID, SELFPAY ==
[2023-04-02 18:30] VITALS: BP 182/102; PULSE 148; RESP 24; TEMP 37.9; O2SAT 94
--- NOTE | 2023-04-02 18:30 | PC.NURSE ---
upon rolling pt to cleanse her of stool pt noted to be on a bedpan. pt cleansed of stool that had spilled from mishra. straight cath ua obtained. iv iniated in left upper arm after multiple attempts.
[2023-04-02 18:43] VITALS: TEMP 37.9
--- NOTE | 2023-04-02 19:04 | ED.NAVMDI ---
HPI - Nausea/Vomiting/Diarrhea General Chief complaint: Nausea/Vomiting/Diarrhea <Gwendolyn Mazariegos PA-C - Last Filed: 04/02/23 20:42> Stated complaint: n/v, AFIB <Gwendolyn Mazariegos PA-C - Last Filed: 04/02/23 20:42> Time Seen by Provider: 04/02/23 18:47 <Gwendolyn Mazariegos PA-C - Last Filed: 04/02/23 20:42> History of Present Illness HPI Narrative: 87-year-old female reports via EMS from [facility] with complaints of vomiting, diarrhea and abdominal pain since she ate lunch. Per the staff at the alf, patient was able to eat lunch but has had vomiting with bile since and is also complaining of abdominal pain. Upon my evaluation, patient is complaining of chest pain, abdominal pain, and states she does not feel well. She arrives incontinent of stool with yellow diarrhea. She denies known fever, cough or congestion. Per chart review, the patient was seen in the ED last on 05/10/2022 and at that time it was reported she was DNR and comfort care paperwork was signed on December 2021. The alf did not present with DNR paperwork. She is not currently on hospice. <Gwendolyn Mazariegos PA-C - Last Filed: 04/02/23 20:42> Related Data Home medications: Home Medications Medication Instructions Recorded Confirmed apixaban 5 mg tablet (Eliquis) 5 mg PO Q12H anticoagulation 11/30/21 04/02/23 atorvastatin 40 mg tablet 40 mg PO HS hyperlipidemia 11/30/21 04/02/23 metoprolol tartrate 50 mg tablet 50 mg PO Q12H hypertension 11/30/21 04/02/23 pantoprazole 40 mg tablet,delayed 40 mg PO DAILY GERD 11/30/21 04/02/23 release sertraline 50 mg tablet 50 mg PO DAILY anxiety 11/30/21 04/02/23 calcium carbonate 500 mg calcium 500 mg PO Q6H PRN Gastric Reflux 04/11/22 04/02/23 (1,250 mg) chewable tablet cetirizine 10 mg tablet (Zyrtec) 10 mg PO DAILY 04/11/22 04/02/23 fluticasone propionate 50 1 spray intranasal DAILY 04/11/22 04/02/23 mcg/actuation nasal spray,suspension (Allergy Relief (fluticasone)) gabapentin 100 mg capsule 100 mg PO BID 04/11/22 04/02/23 montelukast 10 mg tablet 10 mg PO HS 04/11/22 04/02/23 (Singulair) scopolamine base 1 mg over 3 days 1 patch transdermal Q3D 04/11/22 04/02/23 transdermal patch sennosides 8.6 mg-docusate sodium 1 tablet PO HS 04/11/22 04/02/23 50 mg tablet (Senna with Docusate Sodium) acetaminophen 650 mg tablet 650 mg PO Q6H PRN Pain 05/10/22 04/02/23 Adults Multivitamin 1 tablet PO DAILY 04/02/23 04/02/23 Artificial Tears 1 drp EACH EYE QID Diplopia 04/02/23 04/02/23 Imodium 2 mg PO USEASDIRECTD 04/02/23 04/02/23 Miralax 0.5 dose PO BID 04/02/23 04/02/23 Zofran ODT 8 mg PO Q8H PRN Nausea 04/02/23 04/02/23 albuterol sulfate 90 mcg inhalation Q6-8H PRN SOB or 04/02/23 04/02/23 Wheezing fluticasone propion-salmeterol 1 puff inhalation BID COPD 04/02/23 04/02/23 furosemide 60 mg PO DAILY 04/02/23 04/02/23 gabapentin 300 mg capsule 300 mg PO DAILY 04/02/23 04/02/23 lorazepam 0.5 mg tablet 0.5 mg PO TID anxiety 04/02/23 04/02/23 melatonin 3 mg PO HS 04/02/23 04/02/23 potassium chloride 20 mEq 20 meq PO DAILY 04/02/23 04/02/23 tablet,extended release(part/cryst) <Gwendolyn Mazariegos PA-C - Last Filed: 04/02/23 20:42> Allergies/Adverse reactions: Allergies Allergy/AdvReac Type Severity Reaction Status Date / Time diphenhydramine Allergy Intermediate Nervousness Verified 04/02/23 21:43 tramadol Allergy Intermediate Hives Verified 04/02/23 21:43 clonidine Allergy Mild Unknown Verified 04/02/23 21:43 Iodinated Contrast Media Allergy Unconscious Verified 04/02/23 21:43 codeine AdvReac Mild Nausea and Verified 04/02/23 21:43 Vomiting morphine AdvReac Mild Nausea and Verified 04/02/23 21:43 Vomiting oxycodone AdvReac Mild Nausea and Verified 04/02/23 21:43 Vomiting <Gwendolyn Mazariegos PA-C - Last Filed: 04/02/23 20:42> Review of Systems Review of Systems: CONSTITUTIONAL: Denies fever, chills EYES: Denies visual light
--- NOTE | 2023-04-02 19:05 | PC.NURSE ---
after multiple calls to residential. spoke with pts nurse usama. states pt is normally a&o x 2-3. today is having altered mental status. does confirm pt is dnr and didnt send papers. will look for them and fax. edp notified family and they are on their way. pt dry heaving.
[2023-04-02 19:10] VITALS: BP 122/83; PULSE 113; RESP 18; O2SAT 95
[2023-04-02 19:19] LABS: Basophils Percent Auto 0.2 % (0.2-1.2); Eosinophils Percent Auto 0.1 % (0-4.4); Hematocrit 29.8 % (37.0-47.0); Hemoglobin 8.5 g/dL (12.0-15.0); Immature Granulocyte Absolute 0.09 K/mm3 (0.00-0.031); Immature Granulocyte Percent A 0.7 % (0-0.5); Lymphocytes Absolute Auto 0.68 K/mm3 (0.9-3.2); Lymphocytes Percent Auto 5.3 % (18.3-44.2); Mean Corpuscular HGB Conc 28.5 g/dl (32-36); Mean Corpuscular Hemoglobin 20.7 pg (26-34); Mean Corpuscular Volume 72.5 fl (80-100); Mean Platelet Volume 9.1 fl (7.4-10.4); Monocytes Absolute Auto 0.6 K/mm3 (0.1-0.6); Monocytes Percent Auto 4.9 % (2.6-8.5); Neutrophils Absolute Auto 11.4 K/mm3 (1.3-6.7); Neutrophils Percent Auto 88.8 % (45.5-73.1); Platelet Count Result 310 k/mm3 (150-375); Red Blood Count 4.11 M/mm3 (4.2-5.4); Red Cell Distribution Width 20.6 % (11.5-14.5); White Blood Count 12.9 K/mm3 (4.5-10.0)
[2023-04-02 19:31] LABS: Lactic Acid Reflex 1.8 mmol/L (0.7-2.0)
[2023-04-02 19:33] LABS: INR 1.8; Prothrombin Time 21.7 Seconds (11.1-14.7)
[2023-04-02 19:34] LABS: Partial Thromboplastin Time 45.3 SECONDS (22.3-36.8)
[2023-04-02] MEDS: HYDROmorphone HCL INJ (*CRX) 1 MG/ML SYR 0.5 MG IV PUSH ×2 (19:35→20:35)
[2023-04-02] MEDS: ONDANSETRON INJ 4 MG/2 ML VIAL IV PUSH ×2 (19:35→20:36)
[2023-04-02 19:38] LABS: Appearance Urine Turbid (Clear); Bacteria Urine 4+ /hpf; Bilirubin Urine Negative (Negative); Blood Urine 2+ (Negative); Color Urine Yellow (Yellow); Glucose Urine UA Negative (Negative); Ketones Urine Negative (Negative); Leukocyte Esterase Ur 3+ LEU/UL (Negative); Need Manual Microscopic Reviewed; Nitrate Urine Negative (Negative); Non Pathogenic Casts >20; Protein Urine 2+ mg/dL (Negative); RBC Urine 21-50 /hpf (0-2); Specific Grav Ur 1.015 (1.001-1.035); Squamous Epithelial Cell Urine Few /hpf (Few); WBC Urine >100 /hpf; pH Urine 6.5 (5.0-9.0)
[2023-04-02 19:40] LABS: Add Urine Microscopic? YES; NT Pro B Type Natriuretic Pept 4790 pg/mL (19.9-100)
[2023-04-02 19:41] LABS: Alanine Aminotransferase 21 U/L (6-35); Albumin Level 3.8 g/dL (3.5-5.1); Alkaline Phosphatase 119 U/L (38-126); Anion Gap 7 mmol/L (8-16); Aspartate Amino Transferase 33 U/L (14-36); Bilirubin,Total 0.7 mg/dL (0.2-1.3); Blood Urea Nitrogen 15 mg/dL (7-17); Calcium 8.7 mg/dL (8.4-10.2); Carbon Dioxide 28 mmol/L (22-30); Chloride 101 mmol/L (98-107); Estimated Glomerular Filt Rate > 60; Glucose 144 mg/dL (65-110); Lipase 30 U/L (23-300); Potassium 3.7 mmol/L (3.4-5.0); Sodium 136 mmol/L (137-145)
[2023-04-02 19:44] LABS: Anisocytosis 3+ (NORMAL); Hypochromasia 1+ (NORMAL); Platelet Estimate Adequate (Adequate); Schistocytes None Seen (NORMAL)
[2023-04-02 19:47] LABS: Troponin I 0.037 ng/mL (0.000-0.034)
[2023-04-02] MEDS: LORazepam INJ (*CRX) 2 MG/ML VIAL 1 MG IV PUSH (20:35)
--- NOTE | 2023-04-02 20:43 | PM.IMHP ---
H&P: HPI History of Present Illness Date/Time: 04/02/23 20:43 Chief Complaint: Fever, diarrhea, vomiting, abdominal pain Narrative: 87-year-old female with a past medical history CVA, CHF, coronary disease, AFib, aortic stenosis and COPD who presented to the ER from [facility] via EMS with vomiting abdominal pain and diarrhea. On arrival to the ER the patient was acutely ill-appearing with T-max of 100.3?. Patient was tachycardic and in distress. She was incontinent of stool in the ER with frankly watery yellow diarrhea. Patient is alert orient x2 at baseline. residential staff Center in also because she had worsening confusion. Labs were consistent with severe sepsis and likely UTI. The patient appeared acutely decompensated in the ER. The ER provider contacted the patient jail and the patient's family to discuss the patient's condition. The patient's daughter who is the POA stated that she would not want the patient to undergo extensive testing and subsequently EKG was canceled and family declined any further intervention such as CT scan. Patient is being admitted to the hospital for comfort based treatment. The daughter Paty states that she is ready for the patient to be comfort measures. She states the patient has been declining and has been completely bedbound and dependent on a [place] lift since she had COVID last year. In ever since she had COVID her memory has not been the same. The patient's mentation has been weaning more so over the last couple of weeks. The patient has also been experiencing frequent intermittent loose stools up to 2 or 3 a day at the jail a over the last 6-8 weeks. The patient has become more dependent on staff for meals and is not infrequently choking on food. She is having a somewhat frequent episodes of emesis 1 or 2 times a day every few days for the last 1-2 weeks. She thinks that the patient has also been having intermittent episodes of pain where she will moan and fidgety around but she cannot get the patient to tell her exactly were pain is. S the patient is usually alert oriented x2 but this has decreased in the last day or 2. Her emesis is usually of the food that she eats but today situation change when the patient had episodes of bilious emesis that started just after breakfast. The daughter is unaware if the patient has been having any fevers at the jail. The patient does have history of kidney stones but the family denies patient having frequent UTIs. Daughter has noticed the patient has had stye to her right eye that is developed in the last few days. She is also concerned the patient's left lower eyelid has been inverted for the last week or 2. She has not noticed any significant drainage from patient's eye. She last saw the patient 2 days ago. They feel the patient's weight has been stable and that staff reports the patient usually has a good appetite until today. Patient's baseline PPS was 30-40. Over the last week patient's PPS has dropped and currently is 10%. Review of Systems Review of Systems: ROS unobtainable: Yes unobtainable due to mental status PMFSH Past Medical History Medical History (Updated 04/03/23 @ 04:49 by Lauren August DO) Anxiety Aortic stenosis Atrial fibrillation Cerebral hemorrhage Chronic anemia Chronic anticoagulation Chronic obstructive pulmonary disease Chronic pain Congestive heart failure Coronary artery disease Dementia Hypertension Macular degeneration Surgical History Surgical History History of appendectomy History of basal cell carcinoma excision History of cardiac catheterization History of cholecystectomy History of coronary artery bypass graft History of heart artery stent History of hysterectomy History of spinal surgery History of tonsillectomy Family History Family History Mother Cer
[2023-04-02 21:19] VITALS: BP 89/53; PULSE 106; RESP 13; O2SAT 90
--- NOTE | 2023-04-02 21:30 | ADMGEN ---
This patient, Edwina Elaine, was admitted to Medical Room 248-. Patient/family oriented to hospital policies and general routines including ID bracelet, bed and alarms, visiting hours, pain management, procedures, bathroom and other care routines, personal items, smoking policy, room service/diet, and visiting hours. Information on how to activate the Rapid Response Team has been discussed. Patient/Family are encouraged to report perceived risks to care and to ask questions if they do not understand what they are told or what they should do.
[2023-04-02 21:42] VITALS: BMI 23.6
[2023-04-02 21:46] VITALS: BP 86/51; PULSE 96; RESP 16; TEMP 36.6; O2SAT 91
[2023-04-03] MEDS: ARTIFICIAL TEARS OPHTH SOLN 15 ML BOTTLE 1 DROP EACH EYE ×2 (05:46→20:33)
[2023-04-03 05:51] VITALS: BP 147/76; PULSE 85; RESP 16; TEMP 36.9; O2SAT 96
[2023-04-03] MEDS: ONDANSETRON INJ 4 MG/2 ML VIAL IV PUSH ×3 (05:57→15:07)
[2023-04-03] MEDS: LORazepam INJ (*CRX) 2 MG/ML VIAL 1 MG IV PUSH ×3 (06:28→13:17)
[2023-04-03 14:00] VITALS: BP 148/77; PULSE 94; RESP 14; TEMP 37.6; O2SAT 98
--- NOTE | 2023-04-03 15:07 | PM.IMPN ---
Progress Note: A&P Assessment and Plan (1) Palliative care encounter: Code(s): Z51.5 - Encounter for palliative care Status: Acute (2) Severe sepsis with acute organ dysfunction: Code(s): A41.9 - Sepsis, unspecified organism; R65.20 - Severe sepsis without septic shock Status: Acute (3) UTI (urinary tract infection): Qualifiers: Urinary tract infection type: site unspecified Hematuria presence: with hematuria Qualified Code(s): N39.0 - Urinary tract infection, site not specified; R31.9 - Hematuria, unspecified Code(s): N39.0 - Urinary tract infection, site not specified Status: Acute (4) Dementia: Qualifiers: Dementia type: unspecified type Dementia severity: moderate Dementia behavioral or psychological symptom: without behavioral, psychotic, or mood disturbance or anxiety Qualified Code(s): F03.B0 - Unspecified dementia, moderate, without behavioral disturbance, psychotic disturbance, mood disturbance, and anxiety Code(s): F03.90 - Unspecified dementia, unspecified severity, without behavioral disturbance, psychotic disturbance, mood disturbance, and anxiety Status: Acute Plan Patient was admitted for comfort measures. Given her recent symptoms and the findings of UTI, suspected she has severe sepsis from urinary source. Given the patient's decline in quality of life and this recent illness, patient's daughter has opted to proceed with comfort based treatment and did not want any further evaluation or treatment. Hospice consult ordered. Patient has been started on comfort medications with Dilaudid prn, Ativan prn, Tylenol as needed for fever, and atropine drops if needed for secretions. Subjective Date/time seen: 04/03/23 15:07 Interval history: 87yo female with CVA, CHF, CAD, AFib, aortic stenosis and COPD who is brought to the ER from [facility] via EMS with nausea, vomiting abdominal pain and diarrhea.?? Patient is alert but unable to provide meaningful history. Exam Narrative: Tm 100.3 99.6 148/77 94 14 98% ra Gen - NARD lying semi-recumbent in bed Chest - clear anteriorly, nml RR CV - irregular Abd - Soft, ND Ext - No pedal edema Psych - alert, confused, akathisia Skin - Warm and dry Objective Data Vital Signs Vital Signs: Vital Signs - 24 hr 04/02/23 18:30 04/02/23 18:43 04/02/23 19:10 Temperature 100.2 F H 100.3 F H Pulse Rate 148 H 113 H Respiratory Rate 24 H 18 Blood Pressure 182/102 H 122/83 Pulse Oximetry 94 95 Oxygen Delivery Room Air 04/02/23 21:19 04/02/23 21:46 04/02/23 22:01 Temperature 97.9 F Pulse Rate 106 H 96 Respiratory Rate 13 16 Blood Pressure 89/53 L 86/51 L Pulse Oximetry 90 91 Oxygen Delivery Room Air 04/03/23 05:51 04/03/23 08:40 04/03/23 14:00 Temperature 98.4 F 99.6 F Pulse Rate 85 94 Respiratory Rate 16 14 Blood Pressure 147/76 H 148/77 H Pulse Oximetry 96 98 Oxygen Delivery Room Air Intake/Output Intake/Output: Intake & Output 03/31/23 04/01/23 04/02/23 04/03/23 23:59 23:59 23:59 23:59 Intake Total 120 Output Total 50 Balance -50 120 Meds/Results Medications: Active Medications Generic Name Dose Route Start Last Admin Trade Name Freq PRN Reason Stop Dose Admin Acetaminophen 650 mg 04/02/23 20:38 Acetaminophen 650 Mg Suppository RECTAL Q6H PRN Fever Artificial Tears 1 drop 04/02/23 20:38 04/03/23 05:46 Artificial Tears Ophth Soln 15 Ml Bottle EACH EYE 1 drop Q4H PRN Administration Dry Eye(s) Atropine Sulfate 1 - 2 drop 04/02/23 20:38 Atropine Sulfate 1% Ophth Soln 5 Ml Bottle SUBLINGUAL Q4H PRN Secretions Hydromorphone HCl 1 mg 04/03/23 11:16 Hydromorphone Hcl Inj (*Crx) 1 Mg/Ml Syr IV PUSH Q2H PRN COMFORT Lorazepam 1 mg 04/02/23 20:38 04/03/23 13:17 Lorazepam Inj (*Crx) 2 Mg/Ml Vial IV PUSH 1 mg Q2H PRN Administration Anxiety
[2023-04-03] MEDS: HYDROmorphone HCL INJ (*CRX) 1 MG/ML SYR IV PUSH (15:53)
[2023-04-03] MEDS: PROMETHAZINE HCL 25 MG TABLET PO (15:58)
[2023-04-03 18:12] VITALS: TEMP 37.7
[2023-04-03] MEDS: ACETAMINOPHEN 650 MG SUPPOSITORY RECTAL (18:12)
[2023-04-03 19:12] VITALS: TEMP 37.2
[2023-04-03 20:00] VITALS: PULSE 94; RESP 14; O2SAT 98
[2023-04-03 20:59] VITALS: BP 115/79; PULSE 107; RESP 17; TEMP 36.3; O2SAT 95
[2023-04-04] MEDS: HYDROmorphone HCL INJ (*CRX) 1 MG/ML SYR IV PUSH ×3 (01:45→13:49)
[2023-04-04] MEDS: LORazepam INJ (*CRX) 2 MG/ML VIAL 1 MG IV PUSH ×2 (01:45→13:16)
[2023-04-04] MEDS: ONDANSETRON INJ 4 MG/2 ML VIAL IV PUSH ×2 (01:45→09:10)
[2023-04-04 05:13] VITALS: BP 111/71; PULSE 83; RESP 18; TEMP 36.8; O2SAT 91
[2023-04-04] MEDS: ARTIFICIAL TEARS OPHTH SOLN 15 ML BOTTLE 1 DROP EACH EYE (08:52)
[2023-04-04 14:41] LABS: SARS-CoV-2 RNA PCR Negative (Negative)
--- NOTE | 2023-04-04 14:46 | PM.DS ---
DS: Admitting Diagnosis Discharge Date 04/04/23 Admitting Diagnosis Nausea/Vomiting/Diarrhea DS: Discharge Diagnosis Discharge Diagnosis (1) Palliative care encounter: Code(s): Z51.5 - Encounter for palliative care Status: Acute (2) Severe sepsis with acute organ dysfunction: Code(s): A41.9 - Sepsis, unspecified organism; R65.20 - Severe sepsis without septic shock Status: Acute (3) UTI (urinary tract infection): Qualifiers: Urinary tract infection type: site unspecified Hematuria presence: with hematuria Qualified Code(s): N39.0 - Urinary tract infection, site not specified; R31.9 - Hematuria, unspecified Code(s): N39.0 - Urinary tract infection, site not specified Status: Acute (4) Dementia: Qualifiers: Dementia type: unspecified type Dementia severity: moderate Dementia behavioral or psychological symptom: without behavioral, psychotic, or mood disturbance or anxiety Qualified Code(s): F03.B0 - Unspecified dementia, moderate, without behavioral disturbance, psychotic disturbance, mood disturbance, and anxiety Code(s): F03.90 - Unspecified dementia, unspecified severity, without behavioral disturbance, psychotic disturbance, mood disturbance, and anxiety Status: Acute DS: Summary Hospital Course Reason for hospitalization: 87yo female with CVA, CHF, CAD, AFib, aortic stenosis and COPD who is brought to the ER from [facility] via EMS with nausea, vomiting abdominal pain and diarrhea.??Please see H&P for details. Hospital Course: Patient was admitted for comfort measures. Given her recent symptoms and the findings of UTI, suspected she has severe sepsis from urinary source. Given the patient's decline in quality of life and this recent illness, patient's daughter has opted to proceed with comfort based treatment and did not want any further evaluation or treatment. Hospice consult ordered. Patient was started on comfort medications with Dilaudid prn, Ativan prn, Tylenol as needed for fever, and atropine drops if needed for secretions. UCx returned positive for EColi. Dtr made aware. Patient transferred back with hospice care. Status at Discharge Cognitive/behavioral status at discharge: stable Time Spent with Patient Time attestation: Total time spent providing and/or coordinating discharge services: 32 minutes Time spent: Greater than 30 minutes Exam Narrative: AF 98.3 111/71 83 18 91% ra Gen - NARD Chest - mildly coarse BS CV - irregular Abd - Soft, ND Ext - No pedal edema Psych - alert, confused Skin - Warm and dry DS: Data Data Completed and Pending Labs on day of discharge: Labs from last 24 hours 04/04/23 13:54 SARS-CoV-2 RNA (RT-PCR) Negative Preliminary micro results at discharge 04/02/23 19:02 Urine Culture - Preliminary Urine Catheterized Escherichia Coli Discharge Plan Discharge Attending physician on discharge: Jonathon Fernandez Discharging Clinician: Jonathon Fernandez Anticipated Discharge Date/Time: 04/04/23 14:51 Patient Disposition: Hospice - Medical Facility Activity: as tolerated Diet: as tolerated Discharge Instructions: Hospice to follow at facility Stand Alone Forms: General Discharge Information Discharge Medications: Continued scopolamine base 1 mg over 3 days Patch 3 Day 1 patch TRANSDERMAL Q3D Artificial Tears 1 drp EACH EYE QID Zofran ODT 8 mg PO Q8H PRN (Reason: Nausea) albuterol sulfate 90 mcg inhalation Q6-8H PRN (Reason: SOB or Wheezing) hydrocodone-acetaminophen 5-325 mg tablet 1 tablet PO Q8H Qty: 2 0RF acetaminophen 650 mg Tablet 650 mg PO Q6H PRN (Reason: Pain) Changed lorazepam 0.5 mg tablet 0.5 mg PO TID Qty: 2 0RF Held pantoprazole 40 mg tablet,delayed release (DR/EC) 40 mg PO DAILY Hold Instructions: hold metoprolol tartrate 50 mg tab
== END 2023-04-04 15:40 | disposition hospice, inpatient (51) ==
LOC: ANHED 19:23 → ANH2MED 21:21
PROVIDERS: Emergency Medicine; Admitting Provider Internal Medicine; Emergency Provider Physician Assistant; PCP Family Medicine; Visit Provider Internal Medicine
DX: Z51.5 Encounter for palliative care (principal); A41.9 Sepsis, unspecified organism; N39.0 Urinary tract infection, site not specified; B96.20 Unspecified Escherichia coli [E. coli] as the cause of diseases classified elsewhere; F03.B0 Unspecified dementia, moderate, without behavioral disturbance, psychotic disturbance, mood disturbance, and anxiety; Z66 Do not resuscitate; Z20.822 Contact with and (suspected) exposure to COVID-19; R32 Unspecified urinary incontinence; R15.9 Full incontinence of feces; D64.9 Anemia, unspecified; H35.30 Unspecified macular degeneration; I11.0 Hypertensive heart disease with heart failure; I50.9 Heart failure, unspecified; J44.9 Chronic obstructive pulmonary disease, unspecified; F41.9 Anxiety disorder, unspecified; R94.31 Abnormal electrocardiogram [ECG] [EKG]; Z79.01 Long term (current) use of anticoagulants; Z79.51 Long term (current) use of inhaled steroids; Z79.1 Long term (current) use of non-steroidal anti-inflammatories (NSAID); Z79.899 Other long term (current) drug therapy
CPT/HCPCS: 36415; 80053; 81001; 83605; 83690; 83880; 84484; 85025; 85610; 85730; 86140; 87077; 87086; 87186; 87635; 96374; 96375; 96376; 99285; A9270; G0378; J1170; J2060; J2405